=== PATIENT | female | born 1940 | race Caucasian/White ===

== ENCOUNTER 2016-07-29 10:09 | Inpatient (IN) | payer MEDICARE, OTHER ==
[~2016-07-29] VITALS: Ht 162.6 cm; Wt 75.4 kg
[~2016-07-29 10:09] MED LIST: ALBUTEROL0.83 MG/ML IH; ARCAPTA NEOHAL75 MCG IH; ASPIR-LOW81 MG PO; ASPIR-LOX325 MG PO; ASPIRIN E.C. 8181 MG PO; BENICAR 20MG TA20 MG PO; BUPROBAN150 MG PO; CIPRO500 MG PO; CLARITIN 1010 MG/TAB PO; CLEOCIN HC150 MG/CAP PO; CLEOCIN HCL300 MG PO; CLOPIDOGREL PO; COUMADIN 22.5 MG/TAB PO; COUMADIN 3MG3 MG/TAB PO; COUMADIN4 MG PO; FLAGYL500 MG PO; FLONASE NASAL S16 GM NS; IPRATROPIUM BROM3 M1 IH; LEVAQUIN 750MG750 M1 PO; LIPITOR 10MG10 MG PO; LOVENOX 100100 MG/ML SQ; MIRALAX PA17 GM/Dose PO; NORCO 325 MG-51 TAB PO; NORVASC 10MG10 MG PO; NORVASC 5MG5 MG/TAB PO; PLAVIX 75MG TAB75 MG PO; PREDNISONE10 MG PO; PREDNISONE20 MG PO; PROAIR HFA0.09 MG/AC IH; PROVENTIL0.09 MG/A1 IH; RT ADVAIR HFA 1112 G IH; RT SPIRIVA18 MCG; SENOKOT S 50 MG1 TAB PO; SEPTRA DS 8001 TAB PO; SIMVASTATIN40 MG PO; TENORMIN 5050 MG/TAB PO; TENORMIN50 MG PO; TUSS; TYLENOL 325MG325 MG PO; WELLBUTRIN PO; WELLBUTRIN SR150 M1 PO; ZOCOR 40MG40 MG PO; ZOFRAN 4MG T4 MG/TAB PO
[2016-07-29] MEDS ORDERED: MULTI VITAMINS1 TAB PO (10:41)
[2016-07-29] MEDS ORDERED: B-121000 MCG PO (10:41)
[2016-07-29] MEDS ORDERED: FERROUS SULFATE65 MG PO (10:42)
[2016-07-29 11:37] LABS: BASO # 0.1 (0.0-0.2); BASO % 0.4 % (0.0-2.0); EOS % 0.2 % (0-4.0); GRAN # 12.8 (1.4-6.5); GRAN % 84.6 % (42.2-75.2); LYMPH # 0.8 (1.2-3.4); LYMPH % 5.3 % (20.0-51.0); MEAN CELL VOLUME 89 fl (80.0-100.0); MEAN CORPUSCULAR HGB CONC 32 g/dl (33.0-37.0); MEAN PLATELET VOLUME 9.9 fl (7.4-10.4); MONO # 1.3 (0.1-0.6); MONO % 8.3 % (1.7-9.3); PLATELET COUNT 325 K/mm3 (130-400); RED BLOOD COUNT 3.79 M/mm3 (4.10-5.30); REDCELL DISTRIBUTION WIDTH-CV 15.1 % (11.5-14.5); WHITE BLOOD COUNT 15.1 K/mm3 (4.8-10.8)
[2016-07-29 11:39] LABS: HEMATOCRIT 33.7 % (37.0-47.0); HEMOGLOBIN 10.8 g/dl (12.5-16.0); MEAN CORPUSCULAR HEMOGLOBIN 28 pg (27.0-31.0)
[2016-07-29 11:43] LABS: ADJUSTED CALCIUM 9.5 mg/dL (8.4-10.2); ALBUMIN 3.5 gm/dL (3.5-5.0); BILIRUBIN,TOTAL 1.1 mg/dL (0.0-1.0); CALCIUM 9.1 mg/dL (8.4-10.2); CREATININE, serum 0.94 mg/dL (0.52-1.25); PARTIAL THROMBOPLASTIN TIME 52.4 SECONDS (26.0-37.0); TOTAL PROTEIN 7.2 gm/dL (6.4-8.2)
[2016-07-29 11:50] LABS: INR 6.1 (0.8-3.0)
[2016-07-29] MEDS ORDERED: WELLBUTRIN SR150 M1 PO (12:59)
[2016-07-29 14:48] VITALS: BP 136/57; PULSE 103; TEMP 98.3
[2016-07-29 19:46] VITALS: BP 133/64; PULSE 102; TEMP 97.7
[2016-07-29 21:32] LABS: PH 5 (5-8); SQUAMOUS EPITHELIAL 0-2 /hpf; URINE APPEARANCE Clear; URINE BACTERIA None Seen /hpf; URINE BILIRUBIN Negative (NEGATIVE); URINE BLOOD 2+ (NEGATIVE); URINE COLOR Yellow; URINE GLUCOSE Negative (NEGATIVE); URINE KETONE Negative (NEGATIVE); URINE RBC 0-2 /hpf; URINE UROBILINOGEN Negative (NEGATIVE)
[2016-07-29 23:57] VITALS: BP 135/57; PULSE 100; TEMP 98.4
[2016-07-30 03:56] VITALS: BP 149/63; PULSE 109; TEMP 98.1
[2016-07-30 07:33] LABS: BASO % 0.4 % (0.0-2.0); EOS # 0.1 (0.0-0.7); EOS % 1.1 % (0-4.0); GRAN # 8.4 (1.4-6.5); GRAN % 81.5 % (42.2-75.2); INR 1.4 (0.8-3.0); LYMPH # 0.8 (1.2-3.4); LYMPH % 8.1 % (20.0-51.0); MEAN CELL VOLUME 92 fl (80.0-100.0); MEAN CORPUSCULAR HGB CONC 31 g/dl (33.0-37.0); MEAN PLATELET VOLUME 10.1 fl (7.4-10.4); MONO # 0.8 (0.1-0.6); PLATELET COUNT 283 K/mm3 (130-400); PROTHROMBIN TIME 15.3 SECONDS (9.7-12.8); RED BLOOD COUNT 3.23 M/mm3 (4.10-5.30); REDCELL DISTRIBUTION WIDTH-CV 15.2 % (11.5-14.5); WHITE BLOOD COUNT 10.3 K/mm3 (4.8-10.8)
[2016-07-30 07:40] LABS: HEMATOCRIT 29.7 % (37.0-47.0); HEMOGLOBIN 9.1 g/dl (12.5-16.0); MEAN CORPUSCULAR HEMOGLOBIN 28 pg (27.0-31.0)
[2016-07-30 07:47] LABS: ADJUSTED CALCIUM 9.3 mg/dL (8.4-10.2); ALBUMIN 2.8 gm/dL (3.5-5.0); BILIRUBIN,TOTAL 0.8 mg/dL (0.0-1.0); CALCIUM 8.3 mg/dL (8.4-10.2); CREATININE, serum 0.7 mg/dL (0.52-1.25); POTASSIUM 3.5 mmol/L (3.4-5.0); TOTAL PROTEIN 6.2 gm/dL (6.4-8.2)
[2016-07-30 08:03] VITALS: BP 148/83; PULSE 101; TEMP 97.8
[2016-07-30 12:08] VITALS: BP 122/88; PULSE 97; TEMP 98.4
[2016-07-30 15:25] VITALS: BP 140/72; PULSE 101; TEMP 97.9
[2016-07-30 20:33] VITALS: BP 160/68; PULSE 111; TEMP 98.3
[2016-07-31 00:04] VITALS: BP 142/59; PULSE 104; TEMP 99.3
[2016-07-31 04:27] VITALS: BP 139/54; PULSE 98; TEMP 98.5
[2016-07-31 07:14] LABS: MEAN CELL VOLUME 91 fl (80.0-100.0); MEAN CORPUSCULAR HGB CONC 31 g/dl (33.0-37.0); MEAN PLATELET VOLUME 9.7 fl (7.4-10.4); PLATELET COUNT 296 K/mm3 (130-400); RED BLOOD COUNT 3.15 M/mm3 (4.10-5.30); REDCELL DISTRIBUTION WIDTH-CV 15.2 % (11.5-14.5); WHITE BLOOD COUNT 8.6 K/mm3 (4.8-10.8)
[2016-07-31 07:27] LABS: HEMATOCRIT 28.8 % (37.0-47.0); HEMOGLOBIN 8.9 g/dl (12.5-16.0); MEAN CORPUSCULAR HEMOGLOBIN 28 pg (27.0-31.0)
[2016-07-31 08:25] VITALS: BP 153/55; PULSE 102; TEMP 97.9
[2016-07-31 11:52] VITALS: BP 153/53; PULSE 101; TEMP 98.4
[2016-07-31 16:15] VITALS: BP 129/49; PULSE 107; TEMP 98.5
[2016-07-31 19:52] VITALS: BP 150/52; PULSE 100; TEMP 98.9
[2016-08-01 01:09] VITALS: BP 146/60; PULSE 95; TEMP 98.6
[2016-08-01 04:37] VITALS: BP 139/64; PULSE 102; TEMP 98.1
[2016-08-01 08:11] LABS: INR 1.7 (0.8-3.0); PROTHROMBIN TIME 18.6 SECONDS (9.7-12.8)
[2016-08-01 09:10] VITALS: BP 124/55; PULSE 88; TEMP 98.4
[2016-08-01 11:49] VITALS: BP 153/78; PULSE 110; TEMP 98.4
[2016-08-01 17:23] VITALS: BP 133/54; PULSE 100; TEMP 98
[2016-08-01 20:20] VITALS: BP 156/61; PULSE 106; TEMP 98.1
[2016-08-02 00:18] VITALS: BP 138/55; PULSE 90; TEMP 98.4
[2016-08-02 04:08] VITALS: BP 140/57; PULSE 92; TEMP 98.5
[2016-08-02 08:27] VITALS: BP 133/52; PULSE 97; TEMP 97.7
[2016-08-02] MEDS ORDERED: IPRATROPIUM BROM3 M1 IH (12:18)
[2016-08-02] MEDS ORDERED: INVANZ INJ1 G/VIAL IV (12:18)
[2016-08-02 12:22] VITALS: BP 117/55; PULSE 92; TEMP 98.3
== END 2016-08-02 14:58 | disposition home or self-care (01) | DRG 194 ==
LOC: COL.ER 10:09 → MEDICAL 12:24
PROVIDERS: Emergency Medicine; Family Medicine
DX: J18.0 Bronchopneumonia, unspecified organism (principal); K92.1 Melena; I10 Essential (primary) hypertension; J44.9 Chronic obstructive pulmonary disease, unspecified; Z86.73 Personal history of transient ischemic attack (TIA), and cerebral infarction without residual deficits; Z79.01 Long term (current) use of anticoagulants; Z86.711 Personal history of pulmonary embolism; Z87.891 Personal history of nicotine dependence; T45.515A Adverse effect of anticoagulants, initial encounter; Z85.118 Personal history of other malignant neoplasm of bronchus and lung
CPT/HCPCS: C9113; J0456; J0696; J1335; J1644; J3430; J7030; J7050; Q9967

== ENCOUNTER 2016-08-04 10:00 | Outpatient (RCR) | payer MEDICARE, OTHER ==
[2008-03-20 23:24] VITALS: BP 144/75
[2016-08-03 10:20] VITALS: BP 141/59; PULSE 93; TEMP 98.2
[~2016-08-04] VITALS: Ht 162.6 cm; Wt 75.0 kg
[~2016-08-04 10:00] MED LIST changes: +B-121000 MCG PO; +FERROUS SULFATE65 MG PO; +INVANZ INJ1 G/VIAL IV; +MULTI VITAMINS1 TAB PO
[2016-08-04 10:01] VITALS: BP 130/71; PULSE 102; TEMP 97.7
== END 2016-08-04 12:21 | disposition home or self-care (01) ==
LOC: EUO 10:00
DX: Z45.2 Encounter for adjustment and management of vascular access device (principal); J18.9 Pneumonia, unspecified organism
CPT/HCPCS: J1335; J1644

== ENCOUNTER 2017-01-12 19:57 | Inpatient (IN) | payer MEDICARE, OTHER ==
[~2017-01-12] VITALS: Ht 162.6 cm; Wt 76.0 kg
[2017-01-12 21:30] LABS: BASO % 0.3 % (0.0-2.0); EOS # 0.1 (0.0-0.7); EOS % 0.9 % (0-4.0); GRAN # 10.2 (1.4-6.5); GRAN % 88.9 % (42.2-75.2); HEMATOCRIT 40.5 % (37.0-47.0); HEMOGLOBIN 12.6 g/dl (12.5-16.0); LYMPH # 0.4 (1.2-3.4); LYMPH % 3.8 % (20.0-51.0); MEAN CELL VOLUME 91 fl (80.0-100.0); MEAN CORPUSCULAR HEMOGLOBIN 28 pg (27.0-31.0); MEAN CORPUSCULAR HGB CONC 31 g/dl (33.0-37.0); MEAN PLATELET VOLUME 10.6 fl (7.4-10.4); MONO # 0.7 (0.1-0.6); MONO % 5.8 % (1.7-9.3); PLATELET COUNT 197 K/mm3 (130-400); RED BLOOD COUNT 4.43 M/mm3 (4.10-5.30); REDCELL DISTRIBUTION WIDTH-CV 15.8 % (11.5-14.5); WHITE BLOOD COUNT 11.5 K/mm3 (4.8-10.8)
[2017-01-12 21:42] LABS: ADJUSTED CALCIUM 8.4 mg/dL (8.4-10.2); ALANINE AMINOTRANSFERASE 33 U/L (9-52); ALBUMIN 4.1 gm/dL (3.5-5.0); ALKALINE PHOSPHATASE 85 U/L (50-136); ANION GAP 9 mmol/L (7-16); BILIRUBIN,TOTAL 0.7 mg/dL (0.0-1.0); BLOOD UREA NITROGEN 16 mg/dL (7-17); CALCIUM 8.5 mg/dL (8.4-10.2); CARBON DIOXIDE 26 mmol/L (22-30); CHLORIDE 104 mmol/L (98-107); GLUCOSE 131 mg/dL (74-106); LIPASE 66 U/L (23-300); POTASSIUM 4.2 mmol/L (3.4-5.0); SODIUM 139 mmol/L (137-145); TOTAL PROTEIN 7.2 gm/dL (6.4-8.2)
[2017-01-12 21:53] LABS: TROPONIN-I < 0.012 ng/mL (0.000-0.034)
[2017-01-12 22:03] LABS: PH 5 (5-8); SQUAMOUS EPITHELIAL None Seen /hpf; URINE APPEARANCE Clear; URINE BACTERIA None Seen /hpf; URINE BILIRUBIN Negative (NEGATIVE); URINE BLOOD Negative (NEGATIVE); URINE COLOR Yellow; URINE GLUCOSE Negative (NEGATIVE); URINE KETONE 1+ (NEGATIVE); URINE RBC 0-2 /hpf; URINE UROBILINOGEN Negative (NEGATIVE); URINE WBC 0-2 /hpf
[2017-01-13 01:04] VITALS: BP 123/55; PULSE 103; TEMP 100.1
[2017-01-13 04:50] VITALS: BP 113/52; PULSE 89; TEMP 98.2
[2017-01-13 07:24] LABS: MEAN CELL VOLUME 92 fl (80.0-100.0); MEAN CORPUSCULAR HGB CONC 31 g/dl (33.0-37.0); MEAN PLATELET VOLUME 10.9 fl (7.4-10.4); PLATELET COUNT 172 K/mm3 (130-400); RED BLOOD COUNT 3.66 M/mm3 (4.10-5.30); REDCELL DISTRIBUTION WIDTH-CV 16.1 % (11.5-14.5); WHITE BLOOD COUNT 7.9 K/mm3 (4.8-10.8)
[2017-01-13 07:33] LABS: HEMATOCRIT 33.6 % (37.0-47.0); HEMOGLOBIN 10.4 g/dl (12.5-16.0); MEAN CORPUSCULAR HEMOGLOBIN 28 pg (27.0-31.0)
[2017-01-13 07:34] LABS: ADD PATHOLOGY DIFF REVIEW NO
[2017-01-13 07:41] LABS: CALCIUM 7.4 mg/dL (8.4-10.2); CREATININE, serum 0.9 mg/dL (0.52-1.25); POTASSIUM 4.1 mmol/L (3.4-5.0)
[2017-01-13 07:57] VITALS: BP 133/57; PULSE 90; TEMP 97.1
[2017-01-13 08:00] LABS: INR 2.1 (0.8-3.0); PROTHROMBIN TIME 24.3 SECONDS (9.7-12.8)
[2017-01-13 09:42] LABS: BAND 24 % (0-10); EOSINOPHIL 1 % (0-4); METAMYELOCYTE 1 % (0-0); NEUTROPHILS 69 % (42.0-75.2); PLATELET ESTIMATE NORMAL (NORMAL); TOTAL CELLS COUNTED 100
[2017-01-13 11:49] VITALS: BP 126/51; PULSE 92; TEMP 98.2
[2017-01-13 16:35] VITALS: BP 108/50; PULSE 91; TEMP 98.6
[2017-01-13 21:10] VITALS: BP 111/46; PULSE 93; TEMP 98.1
[2017-01-14] VITALS (7 sets, daily range): BP systolic 116–135; BP diastolic 45–68; PULSE 93–97; TEMP 98.6–99.4
[2017-01-14 07:27] LABS: BASO % 0.2 % (0.0-2.0); GRAN # 2.7 (1.4-6.5); GRAN % 66.1 % (42.2-75.2); LYMPH # 0.9 (1.2-3.4); LYMPH % 22.1 % (20.0-51.0); MEAN CELL VOLUME 93 fl (80.0-100.0); MEAN CORPUSCULAR HGB CONC 30 g/dl (33.0-37.0); MEAN PLATELET VOLUME 10.9 fl (7.4-10.4); MONO # 0.4 (0.1-0.6); MONO % 10.1 % (1.7-9.3); PLATELET COUNT 144 K/mm3 (130-400); RED BLOOD COUNT 3.46 M/mm3 (4.10-5.30); REDCELL DISTRIBUTION WIDTH-CV 16.5 % (11.5-14.5); WHITE BLOOD COUNT 4.1 K/mm3 (4.8-10.8)
[2017-01-14 07:36] LABS: HEMATOCRIT 32.2 % (37.0-47.0); HEMOGLOBIN 9.7 g/dl (12.5-16.0); MEAN CORPUSCULAR HEMOGLOBIN 28 pg (27.0-31.0)
[2017-01-14 07:42] LABS: CALCIUM 7.4 mg/dL (8.4-10.2); CREATININE, serum 0.73 mg/dL (0.52-1.25); POTASSIUM 3.5 mmol/L (3.4-5.0)
[2017-01-15 04:47] VITALS: BP 117/56; PULSE 85; TEMP 98.4
[2017-01-15 07:45] VITALS: BP 120/49; PULSE 95; TEMP 98.4
[2017-01-15 09:45] LABS: BASO % 0.5 % (0.0-2.0); EOS # 0.1 (0.0-0.7); EOS % 1.2 % (0-4.0); GRAN # 2.9 (1.4-6.5); GRAN % 67.6 % (42.2-75.2); LYMPH # 0.8 (1.2-3.4); LYMPH % 19.4 % (20.0-51.0); MEAN CELL VOLUME 91 fl (80.0-100.0); MEAN CORPUSCULAR HGB CONC 31 g/dl (33.0-37.0); MEAN PLATELET VOLUME 10.6 fl (7.4-10.4); MONO # 0.5 (0.1-0.6); MONO % 11.1 % (1.7-9.3); PLATELET COUNT 167 K/mm3 (130-400); RED BLOOD COUNT 3.61 M/mm3 (4.10-5.30); REDCELL DISTRIBUTION WIDTH-CV 16.1 % (11.5-14.5); WHITE BLOOD COUNT 4.3 K/mm3 (4.8-10.8)
[2017-01-15 09:46] LABS: HEMATOCRIT 32.7 % (37.0-47.0); HEMOGLOBIN 10.2 g/dl (12.5-16.0); MEAN CORPUSCULAR HEMOGLOBIN 28 pg (27.0-31.0)
[2017-01-15 09:54] LABS: INR 1.4 (0.8-3.0); PROTHROMBIN TIME 15.3 SECONDS (9.7-12.8)
[2017-01-15 10:13] LABS: CALCIUM 8.2 mg/dL (8.4-10.2); CREATININE, serum 0.65 mg/dL (0.52-1.25); POTASSIUM 3.2 mmol/L (3.4-5.0)
[2017-01-15 11:42] VITALS: BP 116/80; PULSE 92; TEMP 98.4
[2017-01-15] MEDS ORDERED: PEPCID 20MG TAB20 MG PO (14:17)
== END 2017-01-15 15:35 | disposition home or self-care (01) | DRG 392 ==
LOC: COL.ER 19:57 → MEDICAL 22:19 → SURG 01-14 09:40 → MEDICAL 01-15 15:35
PROVIDERS: Emergency Medicine; Family Medicine; Nurse Practitioner Family; Physician Assistant
DX: K52.9 Noninfective gastroenteritis and colitis, unspecified (principal); K92.1 Melena; E87.1 Hypo-osmolality and hyponatremia; E86.0 Dehydration; E87.6 Hypokalemia; J44.9 Chronic obstructive pulmonary disease, unspecified; D64.9 Anemia, unspecified; I10 Essential (primary) hypertension; Z85.118 Personal history of other malignant neoplasm of bronchus and lung; Z87.891 Personal history of nicotine dependence; Z86.711 Personal history of pulmonary embolism; Z79.01 Long term (current) use of anticoagulants
CPT/HCPCS: 99232-AI; 99239; J1956; J2405; J7030

== ENCOUNTER 2017-05-13 05:15 | Emergency (ER) | payer MEDICARE, OTHER ==
[2008-03-20 23:24] VITALS: BP 144/75
[~2017-05-13 05:15] MED LIST changes: +PEPCID 20MG TAB20 MG PO
[2017-05-13] MEDS ORDERED: NORVASC 10MG10 MG PO (05:41)
[2017-05-13 05:51] LABS: INR 3.3 (0.8-3.0); PROTHROMBIN TIME 39.6 SECONDS (9.7-12.8)
[2017-05-13 07:38] VITALS: BP 135/60; PULSE 83
== END 2017-05-13 07:38 | disposition home or self-care (01) ==
LOC: COL.ER 05:15
PROVIDERS: Emergency Medicine
DX: R04.0 Epistaxis (principal); T45.515A Adverse effect of anticoagulants, initial encounter; I10 Essential (primary) hypertension; J44.9 Chronic obstructive pulmonary disease, unspecified; E78.5 Hyperlipidemia, unspecified; Z85.118 Personal history of other malignant neoplasm of bronchus and lung; Z87.891 Personal history of nicotine dependence; Z86.73 Personal history of transient ischemic attack (TIA), and cerebral infarction without residual deficits; Z86.711 Personal history of pulmonary embolism; Z86.718 Personal history of other venous thrombosis and embolism; Z79.01 Long term (current) use of anticoagulants

== ENCOUNTER 2017-05-19 09:57 | Emergency (ER) | payer MEDICARE, OTHER ==
[2008-03-20 23:24] VITALS: BP 144/75
[~2017-05-19] VITALS: Ht 162.6 cm; Wt 68.2 kg
[2017-05-19 10:05] VITALS: BP 165/57; PULSE 104; TEMP 99.5
[2017-05-19 10:52] LABS: HEMATOCRIT 35.4 % (37.0-47.0); HEMOGLOBIN 10.9 g/dl (12.5-16.0); MEAN CELL VOLUME 92 fl (80.0-100.0); MEAN CORPUSCULAR HEMOGLOBIN 28 pg (27.0-31.0); MEAN CORPUSCULAR HGB CONC 31 g/dl (33.0-37.0); MEAN PLATELET VOLUME 10.6 fl (7.4-10.4); PLATELET COUNT 233 K/mm3 (130-400); RED BLOOD COUNT 3.85 M/mm3 (4.10-5.30); REDCELL DISTRIBUTION WIDTH-CV 16.1 % (11.5-14.5)
[2017-05-19 11:06] LABS: INR 1.9 (0.8-3.0); PROTHROMBIN TIME 21.9 SECONDS (9.7-12.8)
== END 2017-05-19 12:20 | disposition home or self-care (01) ==
LOC: COL.ER 09:57
PROVIDERS: Emergency Medicine
DX: R04.0 Epistaxis (principal); I10 Essential (primary) hypertension; J44.9 Chronic obstructive pulmonary disease, unspecified; E78.5 Hyperlipidemia, unspecified; C34.90 Malignant neoplasm of unspecified part of unspecified bronchus or lung; Z86.73 Personal history of transient ischemic attack (TIA), and cerebral infarction without residual deficits; Z79.01 Long term (current) use of anticoagulants

== ENCOUNTER 2017-05-26 07:17 | Emergency (ER) | payer MEDICARE, OTHER ==
[2008-03-20 23:24] VITALS: BP 144/75
[~2017-05-26] VITALS: Ht 162.6 cm; Wt 68.2 kg
[2017-05-26 07:28] VITALS: BP 111/71; PULSE 132; TEMP 97
[2017-05-26 08:06] LABS: BASO % 0.7 % (0.0-2.0); EOS # 0.2 (0.0-0.7); EOS % 2.6 % (0-4.0); GRAN % 68.6 % (42.2-75.2); LYMPH # 1.2 (1.2-3.4); LYMPH % 21.2 % (20.0-51.0); MEAN CELL VOLUME 92 fl (80.0-100.0); MEAN CORPUSCULAR HGB CONC 30 g/dl (33.0-37.0); MEAN PLATELET VOLUME 10.1 fl (7.4-10.4); MONO # 0.4 (0.1-0.6); MONO % 6.7 % (1.7-9.3); PLATELET COUNT 280 K/mm3 (130-400); RED BLOOD COUNT 3.68 M/mm3 (4.10-5.30); REDCELL DISTRIBUTION WIDTH-CV 15.6 % (11.5-14.5)
[2017-05-26 08:08] LABS: HEMATOCRIT 33.9 % (37.0-47.0); HEMOGLOBIN 10.2 g/dl (12.5-16.0); INR 1.8 (0.8-3.0); MEAN CORPUSCULAR HEMOGLOBIN 28 pg (27.0-31.0); PROTHROMBIN TIME 20.7 SECONDS (9.7-12.8)
[2017-05-26 08:14] LABS: CALCIUM 9.2 mg/dL (8.4-10.2); CREATININE, serum 1.03 mg/dL (0.52-1.25); POTASSIUM 3.7 mmol/L (3.4-5.0)
[2017-05-26 08:58] LABS: COLLECTION METHOD CLEAN CATCH
[2017-05-26 09:09] LABS: HYALINE CAST >12 /lpf; MUCOUS Present /lpf; PH 5 (5-8); SQUAMOUS EPITHELIAL 0-2 /hpf; URINE APPEARANCE Hazy; URINE BACTERIA None Seen /hpf; URINE BILIRUBIN Negative (NEGATIVE); URINE BLOOD Negative (NEGATIVE); URINE COLOR Yellow; URINE GLUCOSE Negative (NEGATIVE); URINE KETONE Negative (NEGATIVE); URINE LEUKOCYTE ESTERASE Trace (NEGATIVE); URINE NITRATE Negative (NEGATIVE); URINE PROTEIN(semi-quant) 2+ (NEGATIVE); URINE RBC 0-2 /hpf; URINE UROBILINOGEN Negative (NEGATIVE)
[2017-05-26 09:14] LABS: ALBUMIN 4.2 gm/dL (3.5-5.0); BILIRUBIN,TOTAL 0.5 mg/dL (0.0-1.0); CALCIUM 9.1 mg/dL (8.4-10.2); CREATININE, serum 1.07 mg/dL (0.52-1.25); POTASSIUM 3.6 mmol/L (3.4-5.0); TOTAL PROTEIN 7.1 gm/dL (6.4-8.2)
[2017-05-26] MEDS ORDERED: OMNICEF 300MG300 MG PO (09:16)
[2017-05-26 09:43] LABS: THYROID STIMULATING HORMONE 1.56 uIU/mL (0.465-4.680)
[2017-05-27 00:46] LABS: FOLATE (FOLIC ACID) 15.7 ng/mL (7.0-31.4)
== END 2017-05-26 09:35 | disposition home or self-care (01) ==
LOC: COL.ER 07:17
PROVIDERS: Emergency Medicine
DX: R04.0 Epistaxis (principal); Z86.711 Personal history of pulmonary embolism; Z86.718 Personal history of other venous thrombosis and embolism; Z79.01 Long term (current) use of anticoagulants

== ENCOUNTER 2017-10-19 09:36 | Emergency (ER) | payer MEDICARE, OTHER ==
[2008-03-20 23:24] VITALS: BP 144/75
[~2017-10-19] VITALS: Ht 160 cm; Wt 70.5 kg
[~2017-10-19 09:36] MED LIST changes: +CEFTIN500 MG PO; +MEDROL 4MG DOSPA4 MG PO; +OMNICEF 300MG300 MG PO
[2017-10-19 09:39] VITALS: TEMP 97.9
[2017-10-19 10:34] LABS: BASO % 0.4 % (0.0-2.0); EOS # 0.1 (0.0-0.7); EOS % 1.6 % (0-4.0); GRAN # 6.1 (1.4-6.5); GRAN % 71.5 % (42.2-75.2); HEMOGLOBIN 11.7 g/dl (12.5-16.0); LYMPH # 1.4 (1.2-3.4); MEAN CELL VOLUME 84 fl (80.0-100.0); MEAN CORPUSCULAR HEMOGLOBIN 27 pg (27.0-31.0); MEAN CORPUSCULAR HGB CONC 32 g/dl (33.0-37.0); MONO # 0.8 (0.1-0.6); MONO % 9.1 % (1.7-9.3); PLATELET COUNT 224 K/mm3 (130-400); RED BLOOD COUNT 4.38 M/mm3 (4.10-5.30); REDCELL DISTRIBUTION WIDTH-CV 18.8 % (11.5-14.5)
[2017-10-19 10:37] LABS: HEMATOCRIT 36.8 % (37.0-47.0)
[2017-10-19 10:40] LABS: INR 2.2 (0.8-3.0); PROTHROMBIN TIME 25.1 SECONDS (9.7-12.8)
[2017-10-19 11:21] LABS: ALBUMIN 3.6 gm/dL (3.5-5.0); BILIRUBIN,TOTAL 0.4 mg/dL (0.0-1.0); CALCIUM 9.6 mg/dL (8.4-10.2); CREATININE, serum 0.73 mg/dL (0.52-1.25); TOTAL PROTEIN 7.1 gm/dL (6.4-8.2)
[2017-10-19 12:19] VITALS: BP 142/59; PULSE 92
[2017-10-19] MEDS ORDERED: TESSALON P100 MG/CAP PO (12:32)
== END 2017-10-19 12:23 | disposition home or self-care (01) ==
LOC: COL.ER 09:36
PROVIDERS: Emergency Medicine
DX: R04.2 Hemoptysis (principal); I10 Essential (primary) hypertension; J44.9 Chronic obstructive pulmonary disease, unspecified; E78.5 Hyperlipidemia, unspecified; Z86.718 Personal history of other venous thrombosis and embolism; Z86.711 Personal history of pulmonary embolism; Z79.01 Long term (current) use of anticoagulants

== ENCOUNTER 2017-11-04 06:45 | Outpatient (CLI) | payer MEDICARE, OTHER ==
[2008-03-20 23:24] VITALS: BP 144/75
[2017-11-04] VITALS (15 sets, daily range): BP systolic 110–196; BP diastolic 52–96; PULSE 52–101; TEMP 98
[~2017-11-04] VITALS: Ht 160 cm; Wt 70.5 kg
[~2017-11-04 06:45] MED LIST changes: -B-121000 MCG PO; +CALCIUM 600MG+D1 TAB PO; +TESSALON P100 MG/CAP PO; +VITAMIN B-1000 MCG/T PO; +VITAMIN C500 MG PO
== END 2017-11-04 10:13 | disposition home or self-care (01) ==
LOC: COL.RAD 06:45
DX: C34.11 Malignant neoplasm of upper lobe, right bronchus or lung (principal); Z79.01 Long term (current) use of anticoagulants
CPT/HCPCS: J2250

== ENCOUNTER 2018-02-27 09:43 | Emergency (ER) | payer MEDICARE, OTHER ==
[2008-03-20 23:24] VITALS: BP 144/75
[~2018-02-27] VITALS: Ht 157.5 cm; Wt 68.2 kg
[2018-02-27 09:47] VITALS: TEMP 97.3
[2018-02-27 10:09] LABS: HEMOGLOBIN 10.3 g/dl (12.5-16.0); MEAN CELL VOLUME 93 fl (80.0-100.0); MEAN CORPUSCULAR HEMOGLOBIN 30 pg (27.0-31.0); MEAN CORPUSCULAR HGB CONC 32 g/dl (33.0-37.0); MEAN PLATELET VOLUME 9.6 fl (7.4-10.4); PLATELET COUNT 118 K/mm3 (130-400); RED BLOOD COUNT 3.42 M/mm3 (4.10-5.30); REDCELL DISTRIBUTION WIDTH-CV 19.2 % (11.5-14.5)
[2018-02-27 10:12] LABS: HEMATOCRIT 31.9 % (37.0-47.0)
[2018-02-27 10:23] LABS: ALBUMIN 3.5 gm/dL (3.5-5.0); BILIRUBIN,TOTAL 0.6 mg/dL (0.0-1.0); CALCIUM 8.6 mg/dL (8.4-10.2); CREATININE, serum 1.09 mg/dL (0.52-1.25); POTASSIUM 3.9 mmol/L (3.4-5.0); TOTAL PROTEIN 6.1 gm/dL (6.4-8.2)
[2018-02-27] MEDS ORDERED: DOXYCYCLINE HY100 MG PO (10:23)
[2018-02-27] MEDS ORDERED: XANAX .25M0.25 MG/TA PO (10:24)
[2018-02-27] MEDS ORDERED: ULTRAM 50MG TAB50 MG PO (10:27)
[2018-02-27] MEDS ORDERED: NORVASC 10MG10 MG PO (10:29)
[2018-02-27] MEDS ORDERED: TESSALON P100 MG/CAP PO (10:30)
[2018-02-27 10:47] LABS: BAND 16 % (0-10); LYMPHOCYTE 18 % (20.0-51.0); NEUTROPHILS 56 % (42.0-75.2); PLATELET ESTIMATE DECREASED (NORMAL)
[2018-02-27 10:49] LABS: HYPOCHROMIA 1+
[2018-02-27] MEDS ORDERED: OMNICEF 300MG300 MG PO (12:04)
[2018-02-27 13:00] VITALS: BP 132/66; PULSE 96
== END 2018-02-27 13:00 | disposition home or self-care (01) ==
LOC: COL.ER 09:43
PROVIDERS: Family Medicine
DX: T45.1X5A Adverse effect of antineoplastic and immunosuppressive drugs, initial encounter (principal); D70.9 Neutropenia, unspecified; R06.00 Dyspnea, unspecified; C34.90 Malignant neoplasm of unspecified part of unspecified bronchus or lung; Z86.718 Personal history of other venous thrombosis and embolism; Z86.711 Personal history of pulmonary embolism; Z79.01 Long term (current) use of anticoagulants
CPT/HCPCS: A4216; J0696; J7030

== ENCOUNTER 2018-08-17 15:05 | Inpatient (IN) | payer MEDICARE, OTHER ==
[~2018-08-17] VITALS: Ht 162.6 cm; Wt 70.3 kg
[~2018-08-17 15:05] MED LIST changes: +DOXYCYCLINE HY100 MG PO; +ULTRAM 50MG TAB50 MG PO; +XANAX .25M0.25 MG/TA PO
[2018-08-17 15:42] LABS: BASO % 0.4 % (0.0-2.0); EOS # 0.1 (0.0-0.7); EOS % 2.6 % (0-4.0); GRAN # 3.9 (1.4-6.5); GRAN % 72.4 % (42.2-75.2); HEMOGLOBIN 10.7 g/dl (12.5-16.0); LYMPH # 0.7 (1.2-3.4); LYMPH % 12.3 % (20.0-51.0); MEAN CELL VOLUME 91 fl (80.0-100.0); MEAN CORPUSCULAR HEMOGLOBIN 29 pg (27.0-31.0); MEAN CORPUSCULAR HGB CONC 32 g/dl (33.0-37.0); MEAN PLATELET VOLUME 9.5 fl (7.4-10.4); MONO # 0.7 (0.1-0.6); MONO % 12.1 % (1.7-9.3); PLATELET COUNT 259 K/mm3 (130-400); RED BLOOD COUNT 3.75 M/mm3 (4.10-5.30); REDCELL DISTRIBUTION WIDTH-CV 15.6 % (11.5-14.5)
[2018-08-17 15:51] LABS: INR 2.8 (0.8-3.0); PROTHROMBIN TIME 32.3 SECONDS (9.7-12.8)
[2018-08-17 15:52] LABS: ALANINE AMINOTRANSFERASE 7 U/L (9-52); ALBUMIN 3.8 gm/dL (3.5-5.0); ALKALINE PHOSPHATASE 80 U/L (50-136); ANION GAP 9 mmol/L (7-16); AST,SGOT 25 U/L (15-37); BILIRUBIN,TOTAL 0.6 mg/dL (0.0-1.0); BLOOD UREA NITROGEN 18 mg/dL (7-17); CALCIUM 8.9 mg/dL (8.4-10.2); CARBON DIOXIDE 29 mmol/L (22-30); CHLORIDE 97 mmol/L (98-107); GLUCOSE 96 mg/dL (74-106); POTASSIUM 4.5 mmol/L (3.4-5.0); SODIUM 135 mmol/L (137-145)
[2018-08-17 16:12] LABS: TROPONIN-I < 0.012 ng/mL (0.000-0.035)
[2018-08-17] MEDS ORDERED: COUMADIN 5MG5 MG/TAB PO (16:14)
[2018-08-17] MEDS ORDERED: COUMADIN 22.5 MG/TAB PO ×2 (16:16)
[2018-08-17] MEDS ORDERED: VENTOLIN0.09 MG IH (16:17)
[2018-08-17] MEDS ORDERED: 00186-0370-20 IH (16:17)
[2018-08-17] MEDS ORDERED: ZOFRAN8 MG PO (16:18)
[2018-08-17 17:31] VITALS: BP 133/51; PULSE 110; TEMP 98.2
--- NOTE | 2018-08-17 18:58 | NUR ---
REPORT TO STEPHANIE FITZGERALD.
--- NOTE | 2018-08-17 19:30 | NUR ---
REPORT RECEIVED. 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 ASSESSMENT COMPLETE. VS STABLE. PLAN OF CARE DISCUSSED FOR MATERIAL DAMAGE ADJUSTER. IS IN [employer] SHARING PHOTOS OF [employer]. REFUSING [place] DOSE-STATES SHE CANT TAKE IT BECAUSE IT MAKES HER FEEL SICK. DENIES PAIN. NO C/O AT THIS TIME. OXYGEN AT 2L/NC. MINIMAL SIGNS OF SHORTNESS OF BREATHE. DENIES SHORTNESS OF BREATHE WELL. ENCOURAGED TO CALL FOR QUESTIONS OR CONCERNS. VERBALIZES UNDERSTANDING. BED IN LOW POSITION, WHEELS LOCKED, CALL LIGHT IN REACH. WILL CONTINUE TO MONITOR.
[2018-08-17 19:49] VITALS: BP 110/55; PULSE 103; TEMP 98
[2018-08-18] VITALS: BP 130/63; PULSE 67; TEMP 97.8
[2018-08-18 04:00] VITALS: BP 110/44; PULSE 104; TEMP 97.8
[2018-08-18 07:33] LABS: GRAN # 3.2 (1.4-6.5); GRAN % 88.1 % (42.2-75.2); LYMPH # 0.3 (1.2-3.4); LYMPH % 8.3 % (20.0-51.0); MEAN CELL VOLUME 91 fl (80.0-100.0); MEAN CORPUSCULAR HGB CONC 32 g/dl (33.0-37.0); MEAN PLATELET VOLUME 9.3 fl (7.4-10.4); MONO # 0.1 (0.1-0.6); PLATELET COUNT 247 K/mm3 (130-400); RED BLOOD COUNT 3.36 M/mm3 (4.10-5.30); REDCELL DISTRIBUTION WIDTH-CV 15.5 % (11.5-14.5)
[2018-08-18 07:34] LABS: HEMATOCRIT 30.6 % (37.0-47.0); HEMOGLOBIN 9.7 g/dl (12.5-16.0); MEAN CORPUSCULAR HEMOGLOBIN 29 pg (27.0-31.0)
[2018-08-18 07:39] LABS: INR 3.4 (0.8-3.0); PROTHROMBIN TIME 38.5 SECONDS (9.7-12.8)
[2018-08-18 07:43] VITALS: BP 122/62; PULSE 96; TEMP 97.2
[2018-08-18 07:47] LABS: CALCIUM 8.8 mg/dL (8.4-10.2); CREATININE, serum 0.81 (0.52-1.25); POTASSIUM 4.5 mmol/L (3.4-5.0)
--- NOTE | 2018-08-18 08:00 | NUR ---
Patient in bed resting. Alert and oriented x 3. Shift assessment complete. Independent in room. Patient denies pain at this time. On 2L of oxygen via NC. Port to left chest accessed, dressing is CDI. Port flushes without complications. Denies further needs at this time.
--- NOTE | 2018-08-18 09:01 | NUR ---
Initial visit; Patient thanked Edge Setter for looking in on her and states she is feeling much better today. Edge Setter will keep Maribell in her prayers.
--- NOTE | 2018-08-18 10:24 | NUR ---
Phone call received from monitor worker ie: heart rate above 120 many times this a.m. Celina FULTON with hospitalist notified, continue with current rate limit for notification.
--- NOTE | 2018-08-18 11:15 | NUR ---
SW attended clinical rounds to discuss discharge planning. Patient lives independently at home alone but family lives close by. Patient plans to return home when she is discharged. Patient's PCP is Dr Gutierrez and she obtains prescriptions from [facility]. Patient denies difficulty obtaining medications. Patient uses O2 at night but no other DME is used and she does not use any home health services. Patient has a DPOA and a copy is in EMR. SW does not anticipate any discharge needs.
[2018-08-18 11:52] VITALS: BP 142/54; PULSE 116; TEMP 97.1
--- NOTE | 2018-08-18 11:57 | NUR ---
Notified Rachel FULTON of HR in 130's
--- NOTE | 2018-08-18 13:39 | NUR ---
Verified fluid bolus order with Rachel RAY
--- NOTE | 2018-08-18 15:09 | NUR ---
Called and requested records from Dr. Blackwell's office.
--- NOTE | 2018-08-18 15:58 | NUR ---
Notified Infection contol, patient influenza screen is negative, respiratory virus panel negative. Unable to collect sputum culture. Per infection control patient ok to be off isolation.
[2018-08-18 16:07] VITALS: BP 109/65; PULSE 115; TEMP 97
--- NOTE | 2018-08-18 18:55 | NUR ---
Patient in bed resting. Denies pain or further needs at this time. Reported off to warehouse supervisor 3rd shift.
[2018-08-18 19:59] VITALS: BP 106/48; PULSE 106; TEMP 97.5
--- NOTE | 2018-08-18 20:21 | NUR ---
Patient resting in bed, evening medicaitons administered. INR elevated, labs reviewed this morning, progress note to continue coumadin. Assessment completed- lungs clear, some dyspnea upon exertion, on 2 L oxygen via NC, abdominal sounds active, pulses +3, denies pain. Independent in room. Alert and oriented x4. No further needs at this time.
[2018-08-19] VITALS: BP 128/52; PULSE 105; TEMP 97.2
[2018-08-19 03:54] VITALS: BP 129/51; PULSE 103; TEMP 97.4
--- NOTE | 2018-08-19 05:05 | NUR ---
Pt slept on/off last night, VSS, no reports of pain. Indepedent in room, alert and oriented x4. IV antibiotics administered. HR 90's-100's last night on telemetry.
[2018-08-19 06:28] LABS: MEAN CELL VOLUME 91 fl (80.0-100.0); MEAN CORPUSCULAR HGB CONC 32 g/dl (33.0-37.0); MEAN PLATELET VOLUME 9.4 fl (7.4-10.4); PLATELET COUNT 256 K/mm3 (130-400); RED BLOOD COUNT 3.02 M/mm3 (4.10-5.30); REDCELL DISTRIBUTION WIDTH-CV 15.5 % (11.5-14.5)
[2018-08-19 06:30] LABS: HEMATOCRIT 27.5 % (37.0-47.0); HEMOGLOBIN 8.8 g/dl (12.5-16.0); MEAN CORPUSCULAR HEMOGLOBIN 29 pg (27.0-31.0)
[2018-08-19 06:33] LABS: INR 4.9 (0.8-3.0)
[2018-08-19 06:47] LABS: CALCIUM 8.7 mg/dL (8.4-10.2); CREATININE, serum 0.87 (0.52-1.25); POTASSIUM 4.4 mmol/L (3.4-5.0)
[2018-08-19 06:47] LABS: PROTHROMBIN TIME 56.3 SECONDS (9.7-12.8)
--- NOTE | 2018-08-19 07:16 | NUR ---
REPORT GIVEN TO AMILCAR WANG.
[2018-08-19 07:43] LABS: ANISOCYTOSIS 1+; BAND 7 % (0-10); HYPOCHROMIA 1+; LYMPHOCYTE 3 % (20.0-51.0); NEUTROPHILS 87 % (42.0-75.2); PLATELET ESTIMATE NORMAL (NORMAL)
[2018-08-19 07:44] LABS: OVALOCYTES 1+
--- NOTE | 2018-08-19 07:46 | NUR ---
Report from AMILCAR Wood. Pt sitting bedside with RT tx, denies pain, alert, oriented, pleasant, in gown.
[2018-08-19 07:50] VITALS: BP 126/50; PULSE 113; TEMP 97.5
--- NOTE | 2018-08-19 10:12 | NUR ---
Pt reports dizziness, SOA with exertion, numbess in feet up to mid-calves.
[2018-08-19 12:24] VITALS: BP 134/53; PULSE 113; TEMP 98.1
--- NOTE | 2018-08-19 12:50 | NUR ---
TELE called, pt's HR elevated into 120's, pt was in BR having a BM, denies pain.
--- NOTE | 2018-08-19 14:10 | NUR ---
Flushed pt's Port after abx completed.
--- NOTE | 2018-08-19 15:10 | NUR ---
Pt placed on O2 per NC per RT
[2018-08-19 15:44] VITALS: BP 122/69; PULSE 94; TEMP 97.9
--- NOTE | 2018-08-19 19:20 | NUR ---
Report to AMILCAR Bonilla
--- NOTE | 2018-08-19 21:00 | NUR ---
RT informed nurse that patient told her she fell out of bed earlier around 2030 and picked self up and got back into bed. Nurse into see patient. Patient reports her call light on bottom rail was stuck and while trying to get it out of rail it fell onto floor. Patient then leaned over to pick call light off of floor and rolled out of bed hitting tail bone on floor. Denies hitting head or extremities. States she wouldn't have said anything but was concerned since she's on a blood thinner. Denies dizziness or pain. States just has irritation to inner buttucks/coccyx from wiping self after frequent loose stools. Barrier cream given. No bruising to coccyx/buttucks or extremities noted. Reviewed that if a patient has a fall we implement high fall risk measures and fall risk band and yellow socks applied. Patient states she doesn't want family notified and adament it really wasn't a fall and is very clear minded. Patient alert and oriented x 4. Bernarda NORMAN and charge nurse Clayton notified of above. See vitals. At 2230 patient states she will not walk out of the room with fall risk band and socks on. "Just labeling patients and I'm going to write a report up about this hospital". States will discharge herself home tonight if bedalarm is utilized. Voiced understanding and explained would call fish house worker/done. Patient refused socks and fall wrist band and removed by this nurse. converter supervisor into visit with patient.
[2018-08-19 21:04] VITALS: BP 154/65; PULSE 86; TEMP 97.8
[2018-08-20] VITALS: BP 121/85; PULSE 82; TEMP 97
--- NOTE | 2018-08-20 00:30 | NUR ---
Patient rests quietly in bed. Respirations with ease.
[2018-08-20 02:14] VITALS: BP 140/65; PULSE 78; TEMP 97.7
--- NOTE | 2018-08-20 02:30 | NUR ---
Telemetry called and reported patients heart rate dropping into 40's. See telemetry strips. Patient resting soundly with eyes closed and awakened by nurse. Patient denies complaints of. VSS. Heart rate 78 BPM while awake. Patient up to the bathroom to void. States has had a total of 4 loose brown bms tonight ranging from medium to small.
--- NOTE | 2018-08-20 02:45 | NUR ---
Bernarda NORMAN notified of patients heart rate dropping into 40's and that patient started on propanolol 40mg BID and times given yesterday. Bernarda put propanolol on hold.
--- NOTE | 2018-08-20 04:30 | NUR ---
Patient awakened for EKG due to sinus arrythmia-vance cardia per tele.
--- NOTE | 2018-08-20 05:15 | NUR ---
Patient resting in bed. Denies complaints. States propanolol really helpful for tremors-states no tremors and holds out hands. Reviewed that med on hold for now due to her heart rate dropping into 40's at rest. Patient up to the bathroom to void. Denies needs.
[2018-08-20 08:21] LABS: BASO % 0.1 % (0.0-2.0); GRAN # 8.6 (1.4-6.5); GRAN % 84.1 % (42.2-75.2); LYMPH % 9.5 % (20.0-51.0); MEAN CELL VOLUME 91 fl (80.0-100.0); MEAN CORPUSCULAR HGB CONC 31 g/dl (33.0-37.0); MEAN PLATELET VOLUME 9.2 fl (7.4-10.4); MONO # 0.6 (0.1-0.6); MONO % 5.6 % (1.7-9.3); PLATELET COUNT 301 K/mm3 (130-400); RED BLOOD COUNT 3.36 M/mm3 (4.10-5.30); REDCELL DISTRIBUTION WIDTH-CV 15.6 % (11.5-14.5)
[2018-08-20 08:21] LABS: INR 3.5 (0.8-3.0); PROTHROMBIN TIME 39.4 SECONDS (9.7-12.8)
[2018-08-20 08:26] LABS: HEMATOCRIT 30.4 % (37.0-47.0); HEMOGLOBIN 9.5 g/dl (12.5-16.0); MEAN CORPUSCULAR HEMOGLOBIN 28 pg (27.0-31.0)
[2018-08-20 08:30] VITALS: BP 146/63; PULSE 77; TEMP 98
[2018-08-20 08:34] LABS: CALCIUM 9.1 mg/dL (8.4-10.2); CREATININE, serum 0.99 (0.52-1.25)
[2018-08-20 12:55] VITALS: BP 143/55; PULSE 80; TEMP 98.1
[2018-08-20 16:00] VITALS: BP 117/68; PULSE 75; TEMP 98
--- NOTE | 2018-08-20 18:00 | NUR ---
Alert. O2 on. Ambulatory with standby assist in halls. Mild shortness of breath. Denies productive cough. RT treatments given. IV antibiotic infusing per port.
--- NOTE | 2018-08-20 19:30 | NUR ---
pt. sitting up in bed at this time. Pt. is A&OX3, assessment complete. PORT to lt. chest patent. Pt. denies pain or other needs at this time.
[2018-08-20 20:17] VITALS: BP 139/52; PULSE 79; TEMP 97.1
[2018-08-21 00:28] VITALS: BP 134/61; PULSE 82; TEMP 98
[2018-08-21 04:06] VITALS: BP 140/64; PULSE 76; TEMP 97.7
[2018-08-21 05:43] LABS: BASO % 0.2 % (0.0-2.0); GRAN # 3.9 (1.4-6.5); GRAN % 71.6 % (42.2-75.2); LYMPH % 17.5 % (20.0-51.0); MEAN CELL VOLUME 91 fl (80.0-100.0); MEAN CORPUSCULAR HGB CONC 31 g/dl (33.0-37.0); MEAN PLATELET VOLUME 9.3 fl (7.4-10.4); MONO # 0.5 (0.1-0.6); MONO % 9.6 % (1.7-9.3); PLATELET COUNT 278 K/mm3 (130-400); RED BLOOD COUNT 3.46 M/mm3 (4.10-5.30); REDCELL DISTRIBUTION WIDTH-CV 15.4 % (11.5-14.5)
[2018-08-21 05:46] LABS: INR 2.7 (0.8-3.0); PROTHROMBIN TIME 31.1 SECONDS (9.7-12.8)
[2018-08-21 05:51] LABS: CALCIUM 8.8 mg/dL (8.4-10.2); CREATININE, serum 0.91 (0.52-1.25); POTASSIUM 3.6 mmol/L (3.4-5.0)
[2018-08-21 06:00] LABS: HEMATOCRIT 31.3 % (37.0-47.0); HEMOGLOBIN 9.6 g/dl (12.5-16.0); MEAN CORPUSCULAR HEMOGLOBIN 28 pg (27.0-31.0)
[2018-08-21 08:15] VITALS: BP 153/65; PULSE 71; TEMP 97.5
[2018-08-21] MEDS ORDERED: PREDNISONE10 MG PO (11:05)
[2018-08-21] MEDS ORDERED: AMOXICILLIN 8751 TAB PO (11:06)
--- NOTE | 2018-08-21 12:15 | NUR ---
RT treatment given. Sitting up without complaint. Minimal wheezing and cough noted. Ambulated in halls with standby assist. Dr. Herron saw patient. Port deaccessed. Dismissed to home per w/c with daughter.
== END 2018-08-21 12:15 | disposition home or self-care (01) | DRG 191 ==
LOC: COL.ER 15:05 → SURG 16:07
PROVIDERS: Emergency Medicine; Hospitalist; Nurse Practitioner Family; Physician Assistant
DX: J44.1 Chronic obstructive pulmonary disease with (acute) exacerbation (principal); C34.31 Malignant neoplasm of lower lobe, right bronchus or lung; E87.1 Hypo-osmolality and hyponatremia; I10 Essential (primary) hypertension; E78.5 Hyperlipidemia, unspecified; D64.81 Anemia due to antineoplastic chemotherapy; Z86.711 Personal history of pulmonary embolism; Z79.01 Long term (current) use of anticoagulants; Z86.718 Personal history of other venous thrombosis and embolism; Z87.891 Personal history of nicotine dependence; F41.8 Other specified anxiety disorders; K44.9 Diaphragmatic hernia without obstruction or gangrene; F98.4 Stereotyped movement disorders
CPT/HCPCS: 99223-AI; 99231-AI; 99232-AI; 99233-AI; 99239; A4216; G0378; J0696; J1644; J2543; J2920; J2930; J3475; J7030; J7512

== ENCOUNTER 2018-09-02 12:20 | Emergency (ER) | payer MEDICARE, OTHER ==
[2008-03-20 23:24] VITALS: BP 144/75
[~2018-09-02] VITALS: Ht 160 cm; Wt 69.5 kg
[~2018-09-02 12:20] MED LIST changes: +00186-0370-20 IH; +AMOXICILLIN 8751 TAB PO; +COUMADIN 5MG5 MG/TAB PO; +VENTOLIN0.09 MG IH; +ZOFRAN8 MG PO
[2018-09-02 12:28] VITALS: TEMP 97.9
[2018-09-02 13:10] LABS: BASO % 0.2 % (0.0-2.0); EOS # 0.1 (0.0-0.7); EOS % 0.7 % (0-4.0); GRAN # 5.9 (1.4-6.5); GRAN % 72.4 % (42.2-75.2); HEMOGLOBIN 11.2 g/dl (12.5-16.0); LYMPH # 1.6 (1.2-3.4); LYMPH % 19.5 % (20.0-51.0); MEAN CELL VOLUME 92 fl (80.0-100.0); MEAN CORPUSCULAR HEMOGLOBIN 28 pg (27.0-31.0); MEAN CORPUSCULAR HGB CONC 31 g/dl (33.0-37.0); MEAN PLATELET VOLUME 9.6 fl (7.4-10.4); MONO # 0.5 (0.1-0.6); MONO % 6.5 % (1.7-9.3); PLATELET COUNT 227 K/mm3 (130-400); RED BLOOD COUNT 3.95 M/mm3 (4.10-5.30); REDCELL DISTRIBUTION WIDTH-CV 16.9 % (11.5-14.5)
[2018-09-02 13:18] LABS: HEMATOCRIT 36.3 % (37.0-47.0)
[2018-09-02 13:20] LABS: CALCIUM 9.2 mg/dL (8.4-10.2); POTASSIUM 3.7 mmol/L (3.4-5.0)
[2018-09-02 13:24] LABS: INR 4.4 (0.8-3.0)
[2018-09-02 13:33] LABS: PROTHROMBIN TIME 50.2 SECONDS (9.7-12.8)
[2018-09-02 14:24] VITALS: BP 159/89; PULSE 89
== END 2018-09-02 14:25 | disposition home or self-care (01) ==
LOC: COL.ER 12:20
PROVIDERS: Emergency Medicine
DX: R04.0 Epistaxis (principal)

== ENCOUNTER 2018-09-23 17:36 | Emergency (ER) | payer MEDICARE, OTHER ==
[2008-03-20 23:24] VITALS: BP 144/75
[~2018-09-23] VITALS: Ht 162.6 cm; Wt 69.5 kg
[2018-09-23 17:44] VITALS: TEMP 99.7
[2018-09-23 19:36] VITALS: BP 130/70; PULSE 98
== END 2018-09-23 19:36 | disposition home or self-care (01) ==
LOC: COL.ER 17:36
DX: R04.0 Epistaxis (principal); I48.91 Unspecified atrial fibrillation

== ENCOUNTER 2018-10-30 21:09 | Emergency (ER) | payer MEDICARE, OTHER ==
[2008-03-20 23:24] VITALS: BP 144/75
[~2018-10-30] VITALS: Ht 160 cm; Wt 70.5 kg
[2018-10-30 21:14] VITALS: TEMP 98.5
[2018-10-30 22:03] LABS: BASO % 0.4 % (0.0-2.0); EOS # 0.2 (0.0-0.7); EOS % 2.8 % (0-4.0); GRAN # 3.7 (1.4-6.5); GRAN % 67.5 % (42.2-75.2); HEMOGLOBIN 10.2 g/dl (12.5-16.0); LYMPH % 17.5 % (20.0-51.0); MEAN CELL VOLUME 88 fl (80.0-100.0); MEAN CORPUSCULAR HEMOGLOBIN 26 pg (27.0-31.0); MEAN CORPUSCULAR HGB CONC 30 g/dl (33.0-37.0); MEAN PLATELET VOLUME 9.3 fl (7.4-10.4); MONO # 0.6 (0.1-0.6); MONO % 11.6 % (1.7-9.3); PLATELET COUNT 261 K/mm3 (130-400); RED BLOOD COUNT 3.88 M/mm3 (4.10-5.30); REDCELL DISTRIBUTION WIDTH-CV 17.2 % (11.5-14.5)
[2018-10-30 22:09] LABS: INR 1.8 (0.8-3.0); PROTHROMBIN TIME 21.9 SECONDS (9.7-12.8)
[2018-10-30 22:22] LABS: ALBUMIN 3.7 gm/dL (3.5-5.0); BILIRUBIN,TOTAL 0.3 mg/dL (0.0-1.0); CALCIUM 8.9 mg/dL (8.4-10.2); CREATININE, serum 0.93 (0.52-1.25); POTASSIUM 3.5 mmol/L (3.4-5.0); TOTAL PROTEIN 6.8 gm/dL (6.4-8.2)
[2018-10-31 01:25] VITALS: BP 146/69; PULSE 96
== END 2018-10-31 01:27 | disposition short-term general hospital (02) ==
LOC: COL.ER 21:09
PROVIDERS: Emergency Medicine
DX: R04.2 Hemoptysis (principal); I10 Essential (primary) hypertension; Z86.718 Personal history of other venous thrombosis and embolism; Z86.711 Personal history of pulmonary embolism; Z85.118 Personal history of other malignant neoplasm of bronchus and lung; Z87.891 Personal history of nicotine dependence; Z79.01 Long term (current) use of anticoagulants
CPT/HCPCS: J1956; J7030; Q9967

== ENCOUNTER 2019-02-05 17:23 | Emergency (ER) | payer MEDICARE, OTHER ==
[2008-03-20 23:24] VITALS: BP 144/75
[~2019-02-05] VITALS: Ht 162.6 cm; Wt 68.2 kg
[2019-02-05 17:39] VITALS: BP 166/80; TEMP 98.3
[2019-02-05] MEDS ORDERED: FLEXERIL5 MG PO (19:10)
[2019-02-05] MEDS ORDERED: NORCO 325 MG-51 TAB PO (19:10)
[2019-02-05] MEDS ORDERED: WALKER MC (19:26)
[2019-02-05 19:29] LABS: INR 2.8 (0.8-3.0)
[2019-02-05 19:37] VITALS: PULSE 101
== END 2019-02-05 19:37 | disposition home or self-care (01) ==
LOC: COL.ER 17:23
PROVIDERS: Emergency Medicine
DX: S22.080A Wedge compression fracture of T11-T12 vertebra, initial encounter for closed fracture (principal); I10 Essential (primary) hypertension; J44.9 Chronic obstructive pulmonary disease, unspecified; E78.5 Hyperlipidemia, unspecified; G62.9 Polyneuropathy, unspecified; Z86.718 Personal history of other venous thrombosis and embolism; Z86.711 Personal history of pulmonary embolism; Z79.01 Long term (current) use of anticoagulants; Z79.51 Long term (current) use of inhaled steroids

== ENCOUNTER 2019-02-13 10:00 | Outpatient (CLI) | payer MEDICARE, OTHER ==
[2008-03-20 23:24] VITALS: BP 144/75
[2019-02-13] VITALS (8 sets, daily range): BP systolic 141–185; BP diastolic 70–101; PULSE 89–110; TEMP 98.8
[~2019-02-13] VITALS: Ht 162.7 cm; Wt 70.0 kg
[~2019-02-13 10:00] MED LIST changes: +FLEXERIL5 MG PO; +WALKER MC
[2019-02-13] MEDS ORDERED: SPIRIVA RESPIMAT4 GM IH (11:53)
[2019-02-13] MEDS ORDERED: FLEXERIL5 MG PO (11:55)
[2019-02-13] MEDS ORDERED: NORCO 325 MG-51 TAB PO (11:56)
[2019-02-13] MEDS ORDERED: COUMADIN 22.5 MG/TAB PO (11:58)
[2019-02-13] MEDS ORDERED: COUMADIN 5MG5 MG/TAB PO (11:58)
[2019-02-13 12:32] LABS: PROTHROMBIN TIME 11.7 SECONDS (9.7-12.8)
--- NOTE | 2019-02-13 14:10 | NUR ---
SEE MERGE DOCUMENTATION FOR MEDICATION ADMINISTRATION TIMES AND INTRA/POST PROCEDURE SEDATION ASSESSMENTS.
--- NOTE | 2019-02-13 15:30 | NUR ---
Pt returned to EU 14 per bed s/p vert. Pt is on 2L O2 per NC all the time at home. Pt is currently on O2 2L per NC and resting well in bed. Family at bedsided.
--- NOTE | 2019-02-13 16:00 | NUR ---
Report to Kari Jc RN who assumed care at this time.
--- NOTE | 2019-02-13 16:45 | NUR ---
pt sits on side of bed, tolerates well, no c/o pain at this time, family in room. bandaid to back clean and dry. pt declined juice or snack, states does not have to use restroom
--- NOTE | 2019-02-13 17:15 | NUR ---
reviewed discharge inst. with pt, also family called Dr Gutierrez office for new pain RX and will picking belt operator, nurse called office to check on coumadin doseage for pt, see orders, written out for pt to take home with lab on . also reviewed moderate sedation discharge and site care. port de-accessed, flushed with NS and heparin 500cc before. pt up and dressed, discharged via w/c to car at 1725
== END 2019-02-13 17:25 | disposition home or self-care (01) ==
LOC: COL.CAR 10:00
PROVIDERS: Radiology Diagnostic Radiology
DX: S22.080A Wedge compression fracture of T11-T12 vertebra, initial encounter for closed fracture (principal); D70.4 Cyclic neutropenia; Z85.118 Personal history of other malignant neoplasm of bronchus and lung; Z90.710 Acquired absence of both cervix and uterus; Z90.49 Acquired absence of other specified parts of digestive tract; Z88.0 Allergy status to penicillin; Z91.040 Latex allergy status; Z79.01 Long term (current) use of anticoagulants; Z87.891 Personal history of nicotine dependence
CPT/HCPCS: C1713; C1894; J2250; J3010; J7120

== ENCOUNTER 2019-04-30 10:18 | Emergency (ER) | payer MEDICARE, OTHER ==
[2008-03-20 23:24] VITALS: BP 144/75
[~2019-04-30] VITALS: Ht 162.6 cm; Wt 68.2 kg
[~2019-04-30 10:18] MED LIST changes: +SPIRIVA RESPIMAT4 GM IH
[2019-04-30 10:20] VITALS: TEMP 97.5
[2019-04-30] MEDS ORDERED: INCRUSE EL62.5 MCG/A IH (10:36)
[2019-04-30 11:07] LABS: BASO % 0.8 % (0.0-2.0); EOS # 0.1 (0.0-0.7); EOS % 2.6 % (0-4.0); GRAN # 3.6 (1.4-6.5); GRAN % 68.2 % (42.2-75.2); HEMATOCRIT 37.6 % (37.0-47.0); HEMOGLOBIN 11.5 g/dl (12.5-16.0); LYMPH # 0.8 (1.2-3.4); LYMPH % 15.6 % (20.0-51.0); MEAN CELL VOLUME 88 fl (80.0-100.0); MEAN CORPUSCULAR HEMOGLOBIN 27 pg (27.0-31.0); MEAN CORPUSCULAR HGB CONC 31 g/dl (33.0-37.0); MEAN PLATELET VOLUME 9.2 fl (7.4-10.4); MONO # 0.7 (0.1-0.6); MONO % 12.4 % (1.7-9.3); PLATELET COUNT 258 K/mm3 (130-400); RED BLOOD COUNT 4.28 M/mm3 (4.10-5.30); REDCELL DISTRIBUTION WIDTH-CV 17.1 % (11.5-14.5)
[2019-04-30 11:15] LABS: INR 2.7 (0.8-3.0); PROTHROMBIN TIME 32.8 SECONDS (9.7-12.8)
[2019-04-30 11:20] LABS: BILIRUBIN,TOTAL 0.3 mg/dL (0.0-1.0); CREATININE, serum 1.02 (0.52-1.25); TOTAL PROTEIN 7.2 gm/dL (6.4-8.2)
[2019-04-30 11:50] VITALS: BP 114/72; PULSE 107
== END 2019-04-30 11:50 | disposition home or self-care (01) ==
LOC: COL.ER 10:18
PROVIDERS: Physician Assistant
DX: R04.0 Epistaxis (principal); I10 Essential (primary) hypertension; J44.9 Chronic obstructive pulmonary disease, unspecified; E78.5 Hyperlipidemia, unspecified; Z86.73 Personal history of transient ischemic attack (TIA), and cerebral infarction without residual deficits; Z85.118 Personal history of other malignant neoplasm of bronchus and lung; Z87.891 Personal history of nicotine dependence; Z79.01 Long term (current) use of anticoagulants

== ENCOUNTER 2019-07-23 10:38 | Inpatient (IN) | payer MEDICARE, OTHER ==
[~2019-07-23] VITALS: Ht 160 cm; Wt 67.8 kg
[~2019-07-23 10:38] MED LIST changes: +INCRUSE EL62.5 MCG/A IH
[2019-07-23 11:23] LABS: BASO # 0.1 (0.0-0.2); BASO % 0.4 % (0.0-2.0); EOS % 0.1 % (0-4.0); GRAN # 12.1 (1.4-6.5); GRAN % 86.1 % (42.2-75.2); LYMPH # 0.7 (1.2-3.4); LYMPH % 4.7 % (20.0-51.0); MEAN CELL VOLUME 86 fl (80.0-100.0); MEAN CORPUSCULAR HGB CONC 31 g/dl (33.0-37.0); MEAN PLATELET VOLUME 10.2 fl (7.4-10.4); MONO # 1.1 (0.1-0.6); MONO % 7.5 % (1.7-9.3); PLATELET COUNT 261 K/mm3 (130-400); REDCELL DISTRIBUTION WIDTH-CV 17.8 % (11.5-14.5)
[2019-07-23 11:24] LABS: HEMATOCRIT 31.7 % (37.0-47.0); HEMOGLOBIN 9.7 g/dl (12.5-16.0); MEAN CORPUSCULAR HEMOGLOBIN 26 pg (27.0-31.0)
[2019-07-23 11:26] LABS: ALBUMIN 3.5 gm/dL (3.5-5.0); BILIRUBIN,TOTAL 0.6 mg/dL (0.0-1.0); CREATININE, serum 1.23 (0.52-1.25); POTASSIUM 4.1 mmol/L (3.4-5.0); PROTHROMBIN TIME 83.9 SECONDS (9.7-12.8)
[2019-07-23 11:27] LABS: INR 6.8 (0.8-3.0)
[2019-07-23 11:37] LABS: TROPONIN-I 0.02 ng/mL (0.000-0.035)
[2019-07-23] MEDS ORDERED: WELLBUTRIN SR150 M1 PO (13:00)
[2019-07-23] MEDS ORDERED: LEVAQUIN 5500 MG/TA1 PO (13:05)
[2019-07-23 16:48] VITALS: BP 142/59; PULSE 111; TEMP 97.8
--- NOTE | 2019-07-23 18:17 | NUR ---
Patient had an uneventful day. Droplet precautions in place. VSS 2L NC O2. No reported SOB. IV CDI, fluids infusing. Patient administered cough medication. Patient independent in room. Denies pain and discomfort. No further needs expressed from patient. Call light within reach
--- NOTE | 2019-07-23 18:40 | NUR ---
Pt report received from Sonia RN at bedside. Pt has call light at her side and is watching tv with no complaints of pain or wants/needs at this time. No s/s of distress noted. Will continue to monitor.
[2019-07-23 19:52] VITALS: BP 138/51; PULSE 114; TEMP 97.9
[2019-07-23 23:24] VITALS: BP 129/53; PULSE 58; TEMP 98.7
--- NOTE | 2019-07-24 01:49 | NUR ---
Pt has remained in bed during the shift alternating between resting with eyes closed and watching tv. Pt remains on droplet precautions. Pt is A&Ox4, compliant with care and medication regimen, and presents in positive mood. Pt remains in stable condition at this time and is currently resting in bed with eyes closed and no s/s of pain noted. Call light within reach and no s/s of distress noted. Will continue to monitor.
[2019-07-24 03:39] VITALS: BP 136/64; PULSE 118; TEMP 98.4
[2019-07-24 06:36] LABS: BASO % 0.3 % (0.0-2.0); EOS # 0.2 (0.0-0.7); EOS % 1.7 % (0-4.0); GRAN # 7.3 (1.4-6.5); GRAN % 82.3 % (42.2-75.2); LYMPH # 0.7 (1.2-3.4); LYMPH % 7.6 % (20.0-51.0); MEAN CELL VOLUME 87 fl (80.0-100.0); MEAN CORPUSCULAR HGB CONC 30 g/dl (33.0-37.0); MONO # 0.7 (0.1-0.6); MONO % 7.5 % (1.7-9.3); PLATELET COUNT 247 K/mm3 (130-400); RED BLOOD COUNT 3.27 M/mm3 (4.10-5.30); REDCELL DISTRIBUTION WIDTH-CV 17.8 % (11.5-14.5)
[2019-07-24 06:47] LABS: CALCIUM 8.2 mg/dL (8.4-10.2); CREATININE, serum 0.88 (0.52-1.25); POTASSIUM 3.6 mmol/L (3.4-5.0)
[2019-07-24 06:49] LABS: HEMATOCRIT 28.4 % (37.0-47.0); HEMOGLOBIN 8.5 g/dl (12.5-16.0); MEAN CORPUSCULAR HEMOGLOBIN 26 pg (27.0-31.0)
[2019-07-24 06:56] LABS: INR 1.8 (0.8-3.0); PROTHROMBIN TIME 21.6 SECONDS (9.7-12.8)
--- NOTE | 2019-07-24 07:25 | NUR ---
PT REPORT GIVEN TO ÓSCAR FITZGERALD AT BEDSIDE. PT IS RESTING PEACEFULLY WITH EYES CLOSED IN BED.
--- NOTE | 2019-07-24 09:44 | NUR ---
Verified with oncology office that patient has been recieving DURVALUMAB (Imfinzi) every two weeks at office with last dose given 07/18/2019. Awaiting further information from pharmacy on required precautions.
--- NOTE | 2019-07-24 10:21 | NUR ---
Assessment complete. Pt sitting up in the side of the bed reading. States she feels okay but her cough is driving her crazy. PRN cough medication provided. Lung sounds were clear. No complaints of pain or discomfort at this time. Zosyn still running, IV fluids to follow. Pt is aware of her POC. Droplet precautions in place. No further needs expressed at this time. Call light in reach.
--- NOTE | 2019-07-24 10:34 | NUR ---
SW met with the patient to discuss discharge plan. The patient lives alone in [place]. She states that her four grandsons also live in [facility]. She reports independence with ADLs and does not have any assistive devices. She states that she does have home oxygen from [employer]. She states that she uses 2 liters at night and uses it as needed during the day. The patient's PCP is Dr. Rosalee Gutierrez and she receives her medications at [facility]. She reports no difficulties obtaining her meds. The patient's DPOA-HC is in EMR. Her DPOA-HC is her grandson, Osorio Raygoza (ph#[phone]). The patient plans to retun home upon discharge. No additional needs at this time.
--- NOTE | 2019-07-24 18:30 | NUR ---
Pt had a very uneventful day. Fluids infused as well as zosyn. PRN cough medication provided this morning. No pain or discomfort through out the day. States she has been coughing up more yellowing mucus and that it makes her feel better when she does. No other needs. Call light in reach.
--- NOTE | 2019-07-24 18:40 | NUR ---
Pt report received from Samina RN at bedside. Pt is resting in bed at this time with no complaints of pain or discomfort and denies any wants/needs at this time. Call light within reach and beverages are available on bedside table. Will continue to monitor.
[2019-07-24 20:50] VITALS: BP 120/52; PULSE 98; TEMP 98.1
--- NOTE | 2019-07-24 23:12 | NUR ---
Pt has remained in stable condition this shift with no complaints of pain. Pt has been drinking coffee and water during this shift and continues to have IV fluids running without complication via her port a cath located on her left upper chest. Pt peacefully resting in bed watching tv. Pt reports that she continues to have a productive cough and is expelling small amounts of thick to thin yellowish / green sputum. Pt presents with no s/s of distress, is A&Ox4, and able to make wants/needs known. Will continue to monitor.
--- NOTE | 2019-07-25 00:16 | NUR ---
Pt refuses to wear SCD's stating that she does not want to have her movement restricted by the SCD air hoses. Education provided on purpose of SCD's and Pt states understanding and replies that "maybe (she) will go home tomorrow" and that it won't be needed.
[2019-07-25 00:58] VITALS: BP 119/45; PULSE 97; TEMP 98
[2019-07-25 04:13] VITALS: BP 122/55; PULSE 92; TEMP 98.6
--- NOTE | 2019-07-25 06:30 | NUR ---
Pt has had a quiet night and has remained in bed resting peacefully with eyes closed for most of the second half of the shift. Pt has been up to use restroom a few times with reports of loose stools. Pt educated on side effects of antibiotics such as loose stools and that if this continues to occur throughout the day or 3 times in 2 days to let the nurse on duty know. Pt states understanding. No s/s of distress noted. Call light is at Pt side on the bed.
--- NOTE | 2019-07-25 07:10 | NUR ---
Pt report given to Soo FITZGERALD
[2019-07-25 07:44] LABS: BASO % 0.5 % (0.0-2.0); EOS # 0.1 (0.0-0.7); EOS % 2.4 % (0-4.0); GRAN # 4.1 (1.4-6.5); GRAN % 71.6 % (42.2-75.2); LYMPH # 0.9 (1.2-3.4); LYMPH % 15.2 % (20.0-51.0); MEAN CELL VOLUME 89 fl (80.0-100.0); MEAN CORPUSCULAR HGB CONC 30 g/dl (33.0-37.0); MEAN PLATELET VOLUME 9.8 fl (7.4-10.4); MONO # 0.6 (0.1-0.6); MONO % 9.6 % (1.7-9.3); PLATELET COUNT 258 K/mm3 (130-400); RED BLOOD COUNT 2.96 M/mm3 (4.10-5.30); REDCELL DISTRIBUTION WIDTH-CV 17.7 % (11.5-14.5)
[2019-07-25 07:57] LABS: HEMATOCRIT 26.3 % (37.0-47.0); HEMOGLOBIN 7.9 g/dl (12.5-16.0); MEAN CORPUSCULAR HEMOGLOBIN 27 pg (27.0-31.0)
[2019-07-25 08:03] LABS: INR 2.2 (0.8-3.0); PROTHROMBIN TIME 26.5 SECONDS (9.7-12.8)
[2019-07-25 08:06] LABS: CALCIUM 8.1 mg/dL (8.4-10.2); CREATININE, serum 0.83 (0.52-1.25); POTASSIUM 3.4 mmol/L (3.4-5.0)
[2019-07-25 08:40] VITALS: BP 109/49; PULSE 92; TEMP 97.9
[2019-07-25 12:08] VITALS: BP 113/49; PULSE 93; TEMP 97.9
[2019-07-25 17:11] VITALS: BP 121/52; PULSE 101; TEMP 97.9
--- NOTE | 2019-07-25 18:25 | NUR ---
PATIENT MENTIONED SHE HAVE A TOTAL OF [address] Herron was informed that hgb dropped from 8.5 yesterday to 7.9 today. . Tele called to inform she was tachy at 120 continuosly, patient was ambulating in her room at that time. patient confirmed she is feeling better and her chest does not hurt anymore when she coughs.
[2019-07-25 19:10] LABS: HEMATOCRIT 28.2 % (37.0-47.0); HEMOGLOBIN 8.5 g/dl (12.5-16.0)
[2019-07-25 21:48] VITALS: BP 147/65; PULSE 117; TEMP 98.2
--- NOTE | 2019-07-25 22:21 | NUR ---
PT IN BED, HUMOROUS, MEDICATION TAKEN, NO PAIN OR DISCOMFORT, BED IN LOW POSITION, WATER, AT BEDSIDE, BROUGHT IN LOTION AND SHAMPOO/BODYWASH FOR HER REQUESTED. NO OTHER NEEDS AT THIS TIME.
[2019-07-26 01:27] VITALS: BP 129/48; PULSE 96; TEMP 98.5
--- NOTE | 2019-07-26 05:03 | NUR ---
pt slept most of night. denies pain or discomfort, bed in low position, uneventful shift.
[2019-07-26 05:24] VITALS: BP 144/60; PULSE 99; TEMP 98.1
[2019-07-26 06:41] LABS: BASO % 0.7 % (0.0-2.0); EOS # 0.1 (0.0-0.7); EOS % 2.1 % (0-4.0); GRAN # 4.3 (1.4-6.5); GRAN % 70.1 % (42.2-75.2); INR 3.1 (0.8-3.0); LYMPH % 15.8 % (20.0-51.0); MEAN CELL VOLUME 88 fl (80.0-100.0); MEAN CORPUSCULAR HGB CONC 29 g/dl (33.0-37.0); MEAN PLATELET VOLUME 9.4 fl (7.4-10.4); MONO # 0.6 (0.1-0.6); PLATELET COUNT 304 K/mm3 (130-400); PROTHROMBIN TIME 37.4 SECONDS (9.7-12.8); RED BLOOD COUNT 3.18 M/mm3 (4.10-5.30); REDCELL DISTRIBUTION WIDTH-CV 17.7 % (11.5-14.5)
[2019-07-26 06:46] LABS: HEMATOCRIT 28.1 % (37.0-47.0); HEMOGLOBIN 8.2 g/dl (12.5-16.0); MEAN CORPUSCULAR HEMOGLOBIN 26 pg (27.0-31.0)
[2019-07-26 08:48] VITALS: BP 115/61; PULSE 102; TEMP 97.4
--- NOTE | 2019-07-26 09:00 | NUR ---
Patient is awake and alert in her room. Oxygen is in place. Respirations are even and nonlabored. She did have a productive cough this morning and the sputum is observed to be thick and yellow/green in color. She states that is the usual for her. She did get up and take a "sponge bath" without difficulty. Call light and personal items are within reach.
[2019-07-26] MEDS ORDERED: OMNICEF 300MG300 MG PO (09:11)
[2019-07-26] MEDS ORDERED: MEDROL 4MG DOSPA4 MG PO (09:13)
--- NOTE | 2019-07-26 09:20 | NUR ---
The patient is to discharge back home today, 07/25. SW presented and explained the IM form to the patient. The patient verbalized understanding and signed. SW to place a copy in the patient's discharge packet. No additional needs at this time.
[2019-07-26 11:55] VITALS: BP 132/73; PULSE 109; TEMP 97.7
[2019-07-26 15:41] LABS: HEMATOCRIT 27.4 % (37.0-47.0); HEMOGLOBIN 8.1 g/dl (12.5-16.0)
--- NOTE | 2019-07-26 18:07 | NUR ---
Patient is sitting up on side of bed eating supper, has no further needs at this time. Call light and personal items are within reach.
--- NOTE | 2019-07-26 19:29 | NUR ---
Received report from AMILCAR Morse.
--- NOTE | 2019-07-26 21:15 | NUR ---
Assessment complete. Alert and oriented x4. Ambulatory,independent. Denies any pain or discomfort at this time. Meds administered. Denies SOB, on 3LO2NC. Tele monitor in place, leads checked. Portacath to left upper chest intact, flushed, dressing CDI. On droplet precautions. Needs met at this time. Call light within reach.
[2019-07-26 21:57] VITALS: BP 131/46; PULSE 89; TEMP 98.3
[2019-07-27 01:12] VITALS: BP 126/54; PULSE 97; TEMP 98
[2019-07-27 05:44] VITALS: BP 141/62; PULSE 99; TEMP 98.1
--- NOTE | 2019-07-27 05:45 | NUR ---
Pt made no complaints during this shift. Meds administered. Call light within reach.
[2019-07-27 06:24] LABS: BASO % 0.6 % (0.0-2.0); EOS # 0.2 (0.0-0.7); EOS % 3.3 % (0-4.0); GRAN # 3.6 (1.4-6.5); LYMPH # 0.8 (1.2-3.4); LYMPH % 15.7 % (20.0-51.0); MEAN CELL VOLUME 89 fl (80.0-100.0); MEAN CORPUSCULAR HGB CONC 30 g/dl (33.0-37.0); MEAN PLATELET VOLUME 9.2 fl (7.4-10.4); MONO # 0.5 (0.1-0.6); MONO % 9.2 % (1.7-9.3); PLATELET COUNT 311 K/mm3 (130-400); RED BLOOD COUNT 3.16 M/mm3 (4.10-5.30); REDCELL DISTRIBUTION WIDTH-CV 17.6 % (11.5-14.5)
[2019-07-27 06:31] LABS: HEMOGLOBIN 8.3 g/dl (12.5-16.0); MEAN CORPUSCULAR HEMOGLOBIN 26 pg (27.0-31.0)
[2019-07-27 06:35] LABS: CALCIUM 8.6 mg/dL (8.4-10.2); CREATININE, serum 0.73 (0.52-1.25); POTASSIUM 3.8 mmol/L (3.4-5.0)
[2019-07-27 06:39] LABS: INR 3.2 (0.8-3.0); PROTHROMBIN TIME 39.1 SECONDS (9.7-12.8)
--- NOTE | 2019-07-27 06:58 | NUR ---
Report given to AMILCAR Almaraz.
[2019-07-27 07:49] VITALS: BP 129/56; PULSE 91; TEMP 97.9
[2019-07-27] MEDS ORDERED: OMNICEF 300MG300 MG PO (08:56)
--- NOTE | 2019-07-27 10:33 | NUR ---
PATIENT IS ALERT AND ORIENTED. COMPLAIN OF CONSTANT COUGH. DENIES ANY PAIN AT THIS TIME. PATIENT RESTING IN BED AT THIS TIME.
--- NOTE | 2019-07-27 13:35 | NUR ---
patient oxygen saturation was 93 at room air. Patient port was deassessed. patient grandson is driving her home. patient denied any pain. Patient discharged.
== END 2019-07-27 11:25 | disposition home or self-care (01) | DRG 871 ==
LOC: COL.ER 10:38 → MEDICAL 11:31
PROVIDERS: Emergency Medicine; Physician Assistant; ADMIT Hospitalist
DX: A41.9 Sepsis, unspecified organism (principal); J18.9 Pneumonia, unspecified organism; J96.21 Acute and chronic respiratory failure with hypoxia; C34.90 Malignant neoplasm of unspecified part of unspecified bronchus or lung; J44.0 Chronic obstructive pulmonary disease with (acute) lower respiratory infection; J22 Unspecified acute lower respiratory infection; B97.29 Other coronavirus as the cause of diseases classified elsewhere; M19.90 Unspecified osteoarthritis, unspecified site; D50.9 Iron deficiency anemia, unspecified; I10 Essential (primary) hypertension; J44.9 Chronic obstructive pulmonary disease, unspecified; E78.5 Hyperlipidemia, unspecified; F32.9 Major depressive disorder, single episode, unspecified; F41.9 Anxiety disorder, unspecified; G25.0 Essential tremor; J30.9 Allergic rhinitis, unspecified; R53.81 Other malaise; Z79.01 Long term (current) use of anticoagulants; Z86.718 Personal history of other venous thrombosis and embolism; Z86.711 Personal history of pulmonary embolism; Z87.891 Personal history of nicotine dependence; Z86.73 Personal history of transient ischemic attack (TIA), and cerebral infarction without residual deficits; Z90.710 Acquired absence of both cervix and uterus; Z88.0 Allergy status to penicillin
CPT/HCPCS: 99223-AI; 99232-AI; 99239; A4216; J0696; J2543; J7030

== ENCOUNTER → 2019-11-10 | Outpatient (CLI) | payer MEDICARE, OTHER ==
[~2019-11-10] MED LIST changes: +LEVAQUIN 5500 MG/TA1 PO
== END ==
LOC: ZCOL.LAB 13:28
DX: R05 Cough (principal); Z20.828 Contact with and (suspected) exposure to other viral communicable diseases

== ENCOUNTER 2020-01-04 11:03 | Emergency (ER) | payer MEDICARE, OTHER ==
[2008-03-20 23:24] VITALS: BP 144/75
[~2020-01-04] VITALS: Ht 162.6 cm; Wt 61.4 kg
[~2020-01-04 11:03] MED LIST changes: +LIPITOR20 MG PO; +PREDNISONE 5MG5 MG PO; +TOPROL XL 25MG25 MG PO
[2020-01-04 12:50] VITALS: BP 136/68; PULSE 92; TEMP 97.4
== END 2020-01-04 12:54 | disposition home or self-care (01) ==
LOC: COL.ER 11:03
DX: R04.2 Hemoptysis (principal); I25.10 Atherosclerotic heart disease of native coronary artery without angina pectoris; J44.9 Chronic obstructive pulmonary disease, unspecified; Z87.891 Personal history of nicotine dependence; Z86.718 Personal history of other venous thrombosis and embolism; Z86.711 Personal history of pulmonary embolism; Z85.118 Personal history of other malignant neoplasm of bronchus and lung; Z79.01 Long term (current) use of anticoagulants

== ENCOUNTER 2020-01-29 06:15 | Outpatient (CLI) | payer MEDICARE, OTHER ==
[2008-03-20 23:24] VITALS: BP 144/75
[~2020-01-29] VITALS: Ht 162.6 cm; Wt 60.0 kg
[2020-01-29 07:02] VITALS: BP 138/54; PULSE 93; TEMP 98.4
[2020-01-29 07:06] LABS: CALCIUM 9.1 mg/dL (8.4-10.2); CREATININE, serum 1.3 (0.52-1.25); POTASSIUM 3.7 mmol/L (3.4-5.0)
[2020-01-29 07:08] LABS: PROTHROMBIN TIME 11.4 SECONDS (9.7-12.8)
[2020-01-29] MEDS ORDERED: ASPIRIN E.C. 8181 MG PO (07:29)
[2020-01-29] MEDS ORDERED: TESSALON P100 MG/CAP PO (07:30)
[2020-01-29] MEDS ORDERED: INCRUSE EL62.5 MCG/A IH (07:33)
--- NOTE | 2020-01-29 07:33 | NUR ---
Initial visit; Patient and her daughter thanked Pizzamaker for offering prayer along with a successful procedure and healing for Maribell this morning.
[2020-01-29] MEDS ORDERED: TOPROL XL 25MG25 MG PO (07:34)
[2020-01-29] MEDS ORDERED: OXYGEN MC (07:35)
[2020-01-29] MEDS ORDERED: ALBUTEROL0.83 MG/ML IH (07:36)
[2020-01-29] MEDS ORDERED: WELLBUTRIN SR150 M1 PO (07:36)
[2020-01-29] MEDS ORDERED: COUMADIN 5MG5 MG/TAB PO (07:39)
[2020-01-29] MEDS ORDERED: VALTREX1 GM PO (07:42)
[2020-01-29] MEDS ORDERED: ZITHROMAX 250M250 MG PO (07:48)
[2020-01-29 08:45] VITALS: BP 144/79; PULSE 87
--- NOTE | 2020-01-29 08:45 | NUR ---
TO RM 7 PER CART FROM [facility]. ALERT ORIENTED X3, TALKING TO STAFF. OCCASIONAL NONPRODUCTIVE COUGH. CONTINUES TO WEAR O2 AT 2L. SATS 97-100%. DENIES PAIN OR DISCOMFORT.
[2020-01-29 09:00] VITALS: BP 150/60; PULSE 90
--- NOTE | 2020-01-29 09:00 | NUR ---
CXR DONE RECEIVED CRANBERRY JUICE. CONTINUES TO DENY PAIN OR DISCOMFORT.
[2020-01-29 09:15] VITALS: BP 142/48; PULSE 90
--- NOTE | 2020-01-29 09:15 | NUR ---
DRANK 100% AND TOLERATED WELL. TALKED TO DR WALKER AND STATED CXR IS FINE. DR OCAMPO CALLED AND OK'D TO GO [place].
--- NOTE | 2020-01-29 09:30 | NUR ---
RECEIVED DISCHARGE INSTRUCTIONS AND VERBALIZED UNDERSTANDING. PATIENTS DAUGHTER IS ASSISTING PATIENT DRESSED.
--- NOTE | 2020-01-29 09:45 | NUR ---
DISCHARGED PER WC BY NURSING STAFF TO PRIVATE CAR IN CARE OF DAUGHTER BRUCE.
[2020-01-29 10:14] LABS: TOTAL PROTEIN,PLEURAL FLUID 3.6 gm/dL
[2020-01-29 10:23] LABS: PLEURAL FLUID RBC 4000 /mm3 (0-0); PLEURAL FLUID WBC 936 /mm3
[2020-01-29 10:26] LABS: PLEURAL FLUID APPEARANCE CLEAR; PLEURAL FLUID COLOR YELLOW
== END 2020-01-29 10:00 | disposition home or self-care (01) ==
LOC: SDCO 06:15
PROVIDERS: Internal Medicine Pulmonary Disease
DX: J90 Pleural effusion, not elsewhere classified (principal); I50.9 Heart failure, unspecified; I35.0 Nonrheumatic aortic (valve) stenosis; Z85.118 Personal history of other malignant neoplasm of bronchus and lung; Z88.0 Allergy status to penicillin; Z86.711 Personal history of pulmonary embolism; Z87.891 Personal history of nicotine dependence; J44.9 Chronic obstructive pulmonary disease, unspecified; Z79.82 Long term (current) use of aspirin; Z79.01 Long term (current) use of anticoagulants; Z90.710 Acquired absence of both cervix and uterus
CPT/HCPCS: 19804

== ENCOUNTER 2020-02-29 13:33 | Inpatient (IN) | payer MEDICARE, OTHER ==
[2020-02-29] VITALS (86 sets, daily range): BP systolic 151; BP diastolic 92; PULSE 103; TEMP 96.6; O2SAT 89–100
[~2020-02-29] VITALS: Ht 157.5 cm; Wt 60.5 kg
[~2020-02-29 13:33] MED LIST changes: +OXYGEN MC; +VALTREX1 GM PO; +ZITHROMAX 250M250 MG PO
[2020-02-29 14:11] LABS: BASO # 0.1 (0.0-0.2); BASO % 0.9 % (0.0-2.0); EOS # 0.2 (0.0-0.7); EOS % 3.3 % (0-4.0); GRAN # 4.9 (1.4-6.5); GRAN % 70.9 % (42.2-75.2); LYMPH % 14.9 % (20.0-51.0); MEAN CELL VOLUME 96 fl (80.0-100.0); MEAN CORPUSCULAR HGB CONC 30 g/dl (33.0-37.0); MEAN PLATELET VOLUME 10.8 fl (7.4-10.4); MONO # 0.7 (0.1-0.6); MONO % 9.6 % (1.7-9.3); PLATELET COUNT 239 K/mm3 (130-400); RED BLOOD COUNT 3.18 M/mm3 (4.10-5.30); REDCELL DISTRIBUTION WIDTH-CV 23.5 % (11.5-14.5)
[2020-02-29 14:22] LABS: INR 2.4 (0.8-3.0); PROTHROMBIN TIME 27.4 SECONDS (9.7-12.8)
[2020-02-29 14:26] LABS: HEMATOCRIT 30.5 % (37.0-47.0); MEAN CORPUSCULAR HEMOGLOBIN 28 pg (27.0-31.0)
[2020-02-29 14:28] LABS: ALBUMIN 3.8 gm/dL (3.5-5.0); BILIRUBIN,TOTAL 0.6 mg/dL (0.0-1.0); CALCIUM 9.2 mg/dL (8.4-10.2); CREATININE, serum 1.46 (0.52-1.25); POTASSIUM 5.3 mmol/L (3.4-5.0); TOTAL PROTEIN 6.6 gm/dL (6.4-8.2)
[2020-02-29 14:49] LABS: TROPONIN-I 1.14 ng/mL (0.000-0.035)
--- NOTE | 2020-02-29 16:38 | NUR ---
RECEIVED REPORT FROM AMILCAR MUJICA IN ER. AWAITING ARRIVAL OF PT TO ICU 1.
--- NOTE | 2020-02-29 16:56 | NUR ---
PT ARRIVES TO ICI 1 ON BIPAP AND ASSISTED OVER TO ICU BED. PT PLACED ON BEDSIDE CONTINUOUS MONITOR. DR PARDO ARRIVES FOR ASSESSMENT AND TO DISCUSS POC WITH PT. PT STATES SHE DOES WANT TO BE A FULL CODE AND IS OK WITH INTUBATION IF NECESSARY. PRDERS TO DRAW ABG, RT NOTIFIED.
--- NOTE | 2020-02-29 17:02 | NUR ---
TRANSPORTED PATIENT TO ICU 1 ON BIPAP WITHOUT INCIDENT. ENRIKE CONTINUE TO MONITOR.
--- NOTE | 2020-02-29 17:11 | NUR ---
Vancomycin Initial Dosing Pharmacy Note Ordering provider: Christofer Mccann MD Indication/duration: PNA, 5 DAYS LABS: SCr 1.46, CrCl~23, GFR 34 Recommendation: Will give a Vancomycin 1.25 gm IV x1 loading dose, then Vancomycin 1 gm IV q24h. Pharmacy will continue to monitor and check a Vancomycin trough on 03/03/20. Loading dose: 1.25 grams Maintenance dose: 1 gram every 24 hours Trough goal: 15-20 ug/mL
[2020-02-29 17:18] LABS: ARTERIAL BLD GAS TCO2 CT 22.6; ARTERIAL BLOOD GAS HCO3 21.1 meq/L (22-26); ARTERIAL BLOOD GAS PCO2 48.9 mmHg (35-45); ARTERIAL BLOOD GAS PO2 76.6 mmHg (80-100); ARTERIAL BLOOD GAS pH 7.25 (7.35-7.45)
--- NOTE | 2020-02-29 17:48 | NUR ---
DR PARDO AT BEDSIDE DISCUSSING ABG RESULTS AND INTUBATION. PT AGREES.
--- NOTE | 2020-02-29 17:51 | NUR ---
DR PARDO BACK TO BEDSIDE TO DISCUSS ABG RESULTS WITH PT AND RN. EXPLAINED TO PT THE NEED TO INTUBATE. DR OCAMPO CALLS RN TO DISCUSS VENT SENTTINGS, RT AWARE. ANESTHESIA CALLED FOR INTUBATION. PT STABLE WIHILE WAITING FOR THEIR ARRIVAL ON BIPAP.
--- NOTE | 2020-02-29 17:54 | NUR ---
DR LE AT BEDSIDE TO PERFORM BEDSIDE ECHO. PHYSCIAN STATES TO RN THAT EF IS ABOUT 5%. DR OCAMPO MADE AWARE OF THESE RESULTS AND REQUESTS PT TO BE INTUABTED AND SPEAK TO DR BRIGGS ABOUT TRASNFERRING PT TO [facility]. TRIPLE AIR VALVE TESTER MADE AWARE OF POC.
--- NOTE | 2020-02-29 17:55 | NUR ---
SPOKE WITH DR PARDO ABOUT DR OCAMPO'S REQUEST TO STOP NITRO GTT AND CHANGE TO NITRO PASTE INSTEAD IF PT CAN TOLERATE POST EXTUBATION. DR PARDO SAYS YES TO STOP NITRO GTT AT THIS TIME.
--- NOTE | 2020-02-29 18:13 | NUR ---
PT SUCCESSFULLYNTUBATED BY ANETHESIA WITH EET 7.[address] XRAY NOTIFIED FOR PROCEDURE FOR PLACEMENT. COLOR CHANGED NOTED. PT PLACED ON VENT BY RT. NOTED PT'S SBP TO BE 60 WITH MANAGER OF TRAINING AND DEVELOPMENT STILL AT BEDSIDE, PLACED LT RADIAL ART LINE SUCCESSFULLY WITH ONE ATTEMPT. PT'S BP DOES IMPROVE AFTER 15 MINUTES OF START OF INTUABTION PROCESS. SEE GTT FLOWSHEET. RESTRAINTS PLACED. FC PATENT AND DRAINING YELLOW CLEAR URINE.
--- NOTE | 2020-02-29 18:40 | NUR ---
DR OCAMPO AT BEDSIDE FOR ASSESSMENT.
[2020-02-29 19:31] LABS: ARTERIAL BLD GAS O2 SATURATION 97.6 % (92-100); ARTERIAL BLD GAS TCO2 CT 15.5; ARTERIAL BLOOD GAS BASE EXCESS -11.2 (-2-2); ARTERIAL BLOOD GAS HCO3 14.6 meq/L (22-26); ARTERIAL BLOOD GAS PCO2 31.9 mmHg (35-45); ARTERIAL BLOOD GAS PO2 109.9 mmHg (80-100); ARTERIAL BLOOD GAS pH 7.28 (7.35-7.45)
--- NOTE | 2020-02-29 19:40 | NUR ---
EMS AT BEDSIDE TO TAKE PT TO [facility]. ALL PERSONAL BELONINGS SENT WITH PT. REPORT MARINELLI MILIND LEE RN AT [facility]. KARMEN BENSON MADE AWARE OF TRANSFER AND AGREES TO IT. AMILCAR LEE GIVEN KARMEN'S NUMBER TO UPDATE UPON PT'S ARRIVAL TO THEIR FACILITY.
== END 2020-02-29 19:40 | disposition short-term general hospital (02) | DRG 208 ==
LOC: COL.ER 13:33 → ICU 14:56
PROVIDERS: Emergency Medicine; Internal Medicine Pulmonary Disease; ADMIT Internal Medicine
PROC: 0BH17EZ Insertion of Endotracheal Airway into Trachea, Via Natural or Artificial Opening (ICD-10-PCS; principal; 2020-02-29)
PROC: 5A1935Z Respiratory Ventilation, Less than 24 Consecutive Hours (ICD-10-PCS; 2020-02-29)
DX: J96.21 Acute and chronic respiratory failure with hypoxia (principal); I21.4 Non-ST elevation (NSTEMI) myocardial infarction; I50.23 Acute on chronic systolic (congestive) heart failure; I13.0 Hypertensive heart and chronic kidney disease with heart failure and stage 1 through stage 4 chronic kidney disease, or unspecified chronic kidney disease; N17.9 Acute kidney failure, unspecified; J44.1 Chronic obstructive pulmonary disease with (acute) exacerbation; I42.9 Cardiomyopathy, unspecified; J96.22 Acute and chronic respiratory failure with hypercapnia; E78.5 Hyperlipidemia, unspecified; D64.9 Anemia, unspecified; I35.0 Nonrheumatic aortic (valve) stenosis; I25.10 Atherosclerotic heart disease of native coronary artery without angina pectoris; Z20.828 Contact with and (suspected) exposure to other viral communicable diseases; E87.5 Hyperkalemia; Z90.49 Acquired absence of other specified parts of digestive tract; Z90.710 Acquired absence of both cervix and uterus; Z86.711 Personal history of pulmonary embolism; Z87.891 Personal history of nicotine dependence; Z85.118 Personal history of other malignant neoplasm of bronchus and lung; Z86.718 Personal history of other venous thrombosis and embolism; Z79.01 Long term (current) use of anticoagulants
CPT/HCPCS: J0456; J0610; J0692; J0696; J1940; J2930; J3370; J7050

== ENCOUNTER 2020-03-27 14:30 | Inpatient (IN) | payer MEDICARE, OTHER ==
[~2020-03-27] VITALS: Ht 162.6 cm; Wt 51.6 kg
[2020-03-27 17:00] VITALS: BP 125/46; PULSE 95; TEMP 96
[2020-03-27] MEDS ORDERED: TOPROL XL 25MG25 MG PO (17:23)
[2020-03-27] MEDS ORDERED: ZITHROMAX 250M250 MG PO ×2 (17:26→18:00)
[2020-03-27 17:27] LABS: BASO % 0.4 % (0.0-2.0); EOS # 0.1 (0.0-0.7); EOS % 1.3 % (0-4.0); GRAN % 70.8 % (42.2-75.2); LYMPH # 1.3 (1.2-3.4); LYMPH % 17.7 % (20.0-51.0); MEAN CELL VOLUME 103 fl (80.0-100.0); MEAN CORPUSCULAR HGB CONC 30 g/dl (33.0-37.0); MEAN PLATELET VOLUME 11.1 fl (7.4-10.4); MONO # 0.7 (0.1-0.6); MONO % 9.5 % (1.7-9.3); PLATELET COUNT 223 K/mm3 (130-400); RED BLOOD COUNT 2.04 M/mm3 (4.10-5.30); REDCELL DISTRIBUTION WIDTH-CV 23.9 % (11.5-14.5)
[2020-03-27 17:28] LABS: PROTHROMBIN TIME 22.1 SECONDS (9.7-12.8)
[2020-03-27 17:30] LABS: HEMOGLOBIN 6.3 g/dl (12.5-16.0); MEAN CORPUSCULAR HEMOGLOBIN 31 pg (27.0-31.0)
[2020-03-27 17:31] LABS: ALBUMIN 3.8 gm/dL (3.5-5.0); BILIRUBIN,TOTAL 0.3 mg/dL (0.0-1.0); CALCIUM 8.7 mg/dL (8.4-10.2); CREATININE, serum 1.59 (0.52-1.25); POTASSIUM 4.4 mmol/L (3.4-5.0); TOTAL PROTEIN 6.2 gm/dL (6.4-8.2)
[2020-03-27] MEDS ORDERED: COUMADIN 5MG5 MG/TAB PO ×2 (17:32→18:03)
[2020-03-27] MEDS ORDERED: LASIX 20MG TABL20 MG PO (17:34)
[2020-03-27] MEDS ORDERED: LIPITOR20 MG PO (17:37)
[2020-03-27] MEDS ORDERED: PLAVIX 75MG TAB75 MG PO (17:39)
[2020-03-27] MEDS ORDERED: WELLBUTRIN XL150 MG PO (17:41)
[2020-03-27] MEDS ORDERED: 00186-0372-20 IH (17:43)
[2020-03-27] MEDS ORDERED: INCRUSE EL62.5 MCG/A INH (17:45)
[2020-03-27] MEDS ORDERED: TESSALON P100 MG/CAP PO (17:46)
[2020-03-27] MEDS ORDERED: PROAIR HFA0.09 MG/AC IH (17:52)
[2020-03-27] MEDS ORDERED: PEPCID 20MG TAB20 MG PO (17:53)
[2020-03-27] MEDS ORDERED: KLOR-CON SPRIN10 MEQ PO (17:55)
[2020-03-27] MEDS ORDERED: OXYGEN NAS (17:56)
--- NOTE | 2020-03-27 18:29 | NUR ---
Patient A/O x4. Patient admitted to medical unit for possible GI bleed. Patient admitted to room 355 accompanied by her daughter Marisol. Patient has low level of hemoglobin level of 6.8 reported from family. Patient reported having dark stools on and off for a while. Patient is on O2 at 2L/min via NC. Non-productive cough noted with small amount of clear sputum. Head to toe assessment completed and charted. Bilateral airam sounds wheezing. SOB noted with minimal activity. Patient stated she is feeling very tired and weak. Feeling little dizzy while standing up. Patient has a port catheter on her chest area. Daughter Marisol at bedside.
[2020-03-27 19:20] VITALS: BP 116/41; PULSE 85; TEMP 98.5
[2020-03-27 19:46] LABS: COLLECTION METHOD CLEAN CATCH
[2020-03-27 19:56] LABS: PH 5 (5-8); SQUAMOUS EPITHELIAL 0-2 /hpf; URINE APPEARANCE Clear; URINE BACTERIA None Seen /hpf; URINE BILIRUBIN Negative (NEGATIVE); URINE BLOOD Negative (NEGATIVE); URINE COLOR Straw; URINE GLUCOSE Negative (NEGATIVE); URINE KETONE Negative (NEGATIVE); URINE LEUKOCYTE ESTERASE Negative (NEGATIVE); URINE NITRATE Negative (NEGATIVE); URINE PROTEIN(semi-quant) Negative (NEGATIVE); URINE RBC None Seen /hpf; URINE UROBILINOGEN Negative (NEGATIVE)
--- NOTE | 2020-03-27 22:50 | NUR ---
PT RESTING IN THE ROOM WITH DAUGHTER AT BEDSIDE. PT HGB IS CRITICALLY LOW, 1 UNIT OF BLOOD HAS BEEN ORDERED AND WILL BE ADMINISTERED THIS NIGHT. THE PATIENT HAS NO C/O PAIN OR DISCOMFORT AT THIS TIME. ASSESSEMENT COMPLETED, WILL CONTINUE TO MONITOR THIS PATIENT THROUGHOUT THE NIGHT. NO FURTHER CONCERNS AT THIS TIME. CALL LIGHT WITHIN REACH.
[2020-03-28] VITALS (18 sets, daily range): BP systolic 97–136; BP diastolic 22–96; PULSE 58–99; TEMP 97.2–99
--- NOTE | 2020-03-28 06:38 | NUR ---
PT HAD UNEVENTFUL NIGHT. WAS GIVEN 1 UNIT OF PRBCs. PT TOLERATED BLOOD TRANSFUSION WITH NO DIFFICULTIES ALTHOUGH BP REMAINED SOFT DESPITE THE TRANSFUSION. PT HAS BEEN PREPPED, AND IS DOWN AT EGD AT THIS TIME. AMILCAR GARCIA WAS GIVEN A REPORT, AND WILL GIVE REPORT TO DAY SHIFT RN. NO FURTHER CONCERNS.
[2020-03-28 07:53] LABS: HEMATOCRIT 22.4 % (37.0-47.0); HEMOGLOBIN 6.9 g/dl (12.5-16.0)
[2020-03-28 07:59] LABS: CREATININE, serum 1.28 (0.52-1.25); POTASSIUM 3.6 mmol/L (3.4-5.0)
--- NOTE | 2020-03-28 12:34 | NUR ---
Patient came back from EGD procedure around 7:30 am. VS checekd Q 15min for 1 hour and Q 30 min for1 hour. No c/o pain or discomfort. Assessment completed. Bilateral upper an lower lung sounds wheezing. Scheduled morning medications given. HG level is 6.9 today. Order received for blood transfusion. Colonoscopy is schedule for tomorrow. Informed patient for clear liquid today.
--- NOTE | 2020-03-28 14:16 | NUR ---
Industrial Maintenance Mechanic met with patient to discuss discharge planning. Patient lives alone in [place] but reports that her grandson, Travis lives in a tiny home in her back yard. Patient states Travis checks on her periodically and will also do laundry at her house. Patient sees Dr. Gutierrez for primary care and also follows with Dr. Blackwell. Patient reports her cancer is in remission. Patient obtains her medications from [facility] and advised she has people who pick them up for her. Patient has a walker at home but reports she has not had to use it much. Patient has home oxygen from [employer]. Patient has Advance Directives which designate her grandson, Osorio (ph#[phone]). Patient states her daughter, Marisol (ph#[phone]) can be updated about her condition and discharge plans, however she only wants Osorio making medical decisions for her, not Marisol. Patient states she is independent with ADLS and plans to return home upon discharge. Patient has [facility] and would like to continue with them. KEIRA contacted Josselyn at [facility] and faxed referral. Josselyn confirmed patient has PT/OT/Nursing. SW contacted patient's grandson, Osorio to review discharge plan. Osorio is in agreement with patient returning home upon discharge with continued services from [facility]. SW will continue to follow.
--- NOTE | 2020-03-28 17:43 | NUR ---
Blood transfusion started at 1500 at the rate of 60ml/hr via port cath. . Patient is alert and oriented. Stayed in the room for the first 15 min to closely monitor VS and any allergic reaction for blood transfusion. No any allergic reaction or adverse reaction to blood transfusion noted. VS checked Q 15min for the first hour, Q 30 for the second hour, and then hourly afterwards. Patient is tolerating blood transfusion well. Will give report to night nurse RN.
[2020-03-28 19:59] LABS: HEMATOCRIT 30.8 % (37.0-47.0); HEMOGLOBIN 9.6 g/dl (12.5-16.0)
--- NOTE | 2020-03-28 20:00 | NUR ---
PATIENT IS A&O. VSS WITH TELE INPLACE. PATIENT TRYING TO DRINK BOWL PREP. NPO AT MIDNIGHT FOR COLONOSCOPY TOMORROW. BOWL PREP HALF GONE, STOOLS ARE STILL SOFT FORMED PER PATIENT. LEFT PORT ACCESSED. PATIENT HAS HX OF LUNG CA. 02 @ 2L PER NC, WHICH IS CHRONIC FOR HER. A&P LUNG PACHECO NOTED EXP WHEEZES. PATIENT IS THIN, SMALL STATURE AND PALE. PATIENT RECEIVED 1 UNIT OF PRBC TODAY. HGB NOW 9.6. HEAD TO TOE ASSESSMENT COMPLETE. EVENING MED GIVEN. COMMODE AT BEDSIDE DUE TO BOWL PREP. CALL LIGHT IN REACH. NO OTHER NEEDS.
[2020-03-29] VITALS (11 sets, daily range): BP systolic 97–147; BP diastolic 43–77; PULSE 83–100; TEMP 97.7–98.3
[2020-03-29 07:01] LABS: HEMATOCRIT 26.1 % (37.0-47.0); HEMOGLOBIN 8.2 g/dl (12.5-16.0); MEAN CELL VOLUME 95 fl (80.0-100.0); MEAN CORPUSCULAR HEMOGLOBIN 30 pg (27.0-31.0); MEAN CORPUSCULAR HGB CONC 31 g/dl (33.0-37.0); MEAN PLATELET VOLUME 10.7 fl (7.4-10.4); PLATELET COUNT 167 K/mm3 (130-400); RED BLOOD COUNT 2.76 M/mm3 (4.10-5.30); REDCELL DISTRIBUTION WIDTH-CV 21.9 % (11.5-14.5)
[2020-03-29 07:04] LABS: CREATININE, serum 1.04 (0.52-1.25); POTASSIUM 3.2 mmol/L (3.4-5.0)
--- NOTE | 2020-03-29 07:50 | NUR ---
PT USED RESTROOM, DRANK ALL OF BOWEL PREP, NPO OTHER THAN BOWEL PREP SINCE MIDNIGHT, PT DENIES PAIN/DISCOMFORT, PT ON 2L OXYGEN, PT AOX4, FLUIDS FOR PROCEDURE HUNG, STEADY GAIT, NO OTHER NEEDS.
--- NOTE | 2020-03-29 07:50 | NUR ---
PT TAKEN DOWN FOR COLONOSCOPY.
--- NOTE | 2020-03-29 09:45 | NUR ---
PT BACK IN ROOM, DENIES PAIN OR DISCOMFORT, CLEAN GOWN PROVIDED PER PT REQUEST, DIET ORDER PLACED AND KITCHEN CALLED FOR TRAY. VITALS STABLE. NO OTHER NEEDS.
--- NOTE | 2020-03-29 13:31 | NUR ---
First visit from the voice over announcer. No needs right now.
--- NOTE | 2020-03-29 17:34 | NUR ---
biopsy taken in colonoscopy in morning, pt denies pain or discomfort during shift, pt independent in room, pt pleasant, aox4, no other needs.
[2020-03-29 17:39] LABS: HEMATOCRIT 29.2 % (37.0-47.0); HEMOGLOBIN 9.1 g/dl (12.5-16.0)
--- NOTE | 2020-03-30 02:43 | NUR ---
Recieved bedside report. Patient had a colonoscopy w/ biopsy earlier in the day. Patient does not report any discomfort at this time. Sats are 92 on 2 L via nasal cannula. Patient currently resting comfortably. Call light within reach.
[2020-03-30 04:10] VITALS: BP 125/50; PULSE 90; TEMP 98.5
--- NOTE | 2020-03-30 06:40 | NUR ---
bedside shift report received from Jasmine, RN and student nurse Amanda,
[2020-03-30 07:00] VITALS: BP 125/52; PULSE 94; TEMP 98.4
[2020-03-30 07:05] LABS: INR 1.3 (0.8-3.0); PROTHROMBIN TIME 14.8 SECONDS (9.7-12.8)
[2020-03-30 07:09] LABS: BASO % 0.6 % (0.0-2.0); EOS # 0.3 (0.0-0.7); EOS % 6.2 % (0-4.0); GRAN # 2.9 (1.4-6.5); GRAN % 62.2 % (42.2-75.2); LYMPH # 0.9 (1.2-3.4); LYMPH % 18.6 % (20.0-51.0); MEAN CELL VOLUME 98 fl (80.0-100.0); MEAN CORPUSCULAR HGB CONC 31 g/dl (33.0-37.0); MEAN PLATELET VOLUME 10.7 fl (7.4-10.4); MONO # 0.6 (0.1-0.6); MONO % 12.2 % (1.7-9.3); PLATELET COUNT 161 K/mm3 (130-400); RED BLOOD COUNT 2.82 M/mm3 (4.10-5.30); REDCELL DISTRIBUTION WIDTH-CV 21.2 % (11.5-14.5)
[2020-03-30 07:11] LABS: HEMATOCRIT 27.6 % (37.0-47.0); HEMOGLOBIN 8.6 g/dl (12.5-16.0); MEAN CORPUSCULAR HEMOGLOBIN 30 pg (27.0-31.0)
[2020-03-30 07:19] LABS: CALCIUM 8.1 mg/dL (8.4-10.2); CREATININE, serum 0.97 (0.52-1.25)
--- NOTE | 2020-03-30 08:45 | NUR ---
up and about in room independently, sitting up in chair at this time, full assessment completed, see interventions for further info, denies needs at this time
[2020-03-30] MEDS ORDERED: ASPIRIN 81M81 MG/TA2 PO (10:02)
--- NOTE | 2020-03-30 11:32 | NUR ---
dressed and ready for discharge, brettacath deaccessed without complications
--- NOTE | 2020-03-30 11:48 | NUR ---
discharge instructions given to patent, verbalizes understanding
[2020-03-30 12:34] VITALS: BP 121/41; PULSE 88; TEMP 97.8
--- NOTE | 2020-03-30 12:39 | NUR ---
discharged per WC
--- NOTE | 2020-04-02 13:48 | NUR ---
Patient discharged home on 03/30/2020 and social staff worker, Padmini contacted Nura at [facility] and advised of discharge. Padmini faxed [employer] the orders. Worker contacted Nura with [facility], this date, and confirmed the above information.
== END 2020-03-30 12:39 | disposition home or self-care (01) | DRG 378 ==
LOC: MEDICAL 15:15 → UNDOADMIN 15:15 → MEDICAL 03-28 06:37
PROVIDERS: Internal Medicine Gastroenterology; Physician Assistant; Student in an Organized Health Care Education/Training Program; ADMIT Hospitalist
PROC: 0DJ08ZZ Inspection of Upper Intestinal Tract, Via Natural or Artificial Opening Endoscopic (ICD-10-PCS; principal; 2020-03-28 07:00)
PROC: 0DBP8ZX Excision of Rectum, Via Natural or Artificial Opening Endoscopic, Diagnostic (ICD-10-PCS; 2020-03-29)
DX: K92.1 Melena (principal); D62 Acute posthemorrhagic anemia; K62.6 Ulcer of anus and rectum; J96.11 Chronic respiratory failure with hypoxia; J96.12 Chronic respiratory failure with hypercapnia; N17.9 Acute kidney failure, unspecified; I42.9 Cardiomyopathy, unspecified; I50.22 Chronic systolic (congestive) heart failure; I13.0 Hypertensive heart and chronic kidney disease with heart failure and stage 1 through stage 4 chronic kidney disease, or unspecified chronic kidney disease; D50.9 Iron deficiency anemia, unspecified; I25.10 Atherosclerotic heart disease of native coronary artery without angina pectoris; K59.00 Constipation, unspecified; E87.6 Hypokalemia; J44.9 Chronic obstructive pulmonary disease, unspecified; I95.9 Hypotension, unspecified; I25.2 Old myocardial infarction; E78.5 Hyperlipidemia, unspecified; N18.9 Chronic kidney disease, unspecified; M19.90 Unspecified osteoarthritis, unspecified site; E87.5 Hyperkalemia; F41.9 Anxiety disorder, unspecified; Z86.711 Personal history of pulmonary embolism; Z95.2 Presence of prosthetic heart valve; Z79.01 Long term (current) use of anticoagulants; Z86.73 Personal history of transient ischemic attack (TIA), and cerebral infarction without residual deficits; Z88.0 Allergy status to penicillin; Z99.81 Dependence on supplemental oxygen; Z87.891 Personal history of nicotine dependence
CPT/HCPCS: 99222-AI; 99232-AI; 99233-AI; C9113; J1940; J2704; J3010; J7030; P9016

== ENCOUNTER 2020-05-24 06:53 | Outpatient (CLI) | payer MEDICARE, OTHER ==
[2008-03-20 23:24] VITALS: BP 144/75
[~2020-05-24] VITALS: Ht 162.6 cm; Wt 53.6 kg
[2020-05-24] VITALS (7 sets, daily range): BP systolic 123–148; BP diastolic 46–86; PULSE 82–96; TEMP 98.3–98.6
[~2020-05-24 06:53] MED LIST changes: +00186-0372-20 IH; +ASPIRIN 81M81 MG/TA2 PO; +INCRUSE EL62.5 MCG/A INH; +KLOR-CON SPRIN10 MEQ PO; +LASIX 20MG TABL20 MG PO; +OXYGEN NAS; +WELLBUTRIN XL150 MG PO
[2020-05-24] MEDS ORDERED: ASPIRIN E.C. 8181 MG PO (07:45)
[2020-05-24] MEDS ORDERED: [UNRECOGNIZED DRUG - CODE] PO (08:02)
[2020-05-24] MEDS ORDERED: 00186-0370-20 IH (08:06)
[2020-05-24] MEDS ORDERED: INCRUSE EL62.5 MCG/A IH (08:10)
--- NOTE | 2020-05-24 09:03 | NUR ---
TO RM 7 PER CART FROM ENDOSCOPY. ALERT ORIENTED X3, TALKING WITH STAFF. REPOSTIONED FOR COMFORT. BANDAIDE APPLIED TO RIGHT BACK.
--- NOTE | 2020-05-24 09:15 | NUR ---
RECEIVED CRANBERRY JUICE AND A MUFFIN/BUTTER.
--- NOTE | 2020-05-24 09:30 | NUR ---
ATE 100% AND TOLERATED WELL. PATIENT TEXTING ON CELL PHONE.
--- NOTE | 2020-05-24 09:37 | NUR ---
RADIOLOGY HER TO TAKE CXR FOLLOWING THORACENTESIS.
--- NOTE | 2020-05-24 10:00 | NUR ---
OFFICE CALLED TO CONFIRM FOLLOW UP (August AT 1247)
--- NOTE | 2020-05-24 10:15 | NUR ---
DR ALSTON CALLED IN RADIOLOGY. NO PNEUMOTHORAX NOTED AND MAY BE DISCHARGED. DR OCAMPO CALLED FOR DISCHARGE INSTRUCTIONS.
--- NOTE | 2020-05-24 10:26 | NUR ---
RECEIVED DISCHARGE INSTRUCTIONS AND VERBALIZED UNDERSTANDING. PATIENT GETTING DRESSED AND EAGER TO GO HOME.
--- NOTE | 2020-05-24 10:35 | NUR ---
DISCHARGED PER WC BY NURSING STAFF TO PRIVATE CAR IN CARE OF KARMEN SHANKS
== END 2020-05-24 10:45 | disposition home or self-care (01) ==
LOC: SDCO 06:53
DX: J90 Pleural effusion, not elsewhere classified (principal)
CPT/HCPCS: 19804

== ENCOUNTER → 2020-06-28 | Outpatient (CLI) | payer MEDICARE, OTHER ==
[~2020-06-28] MED LIST changes: +[UNRECOGNIZED DRUG - CODE] PO
[2020-06-28 16:55] LABS: BASO # 0.1 (0.0-0.2); BASO % 0.6 % (0.0-2.0); EOS # 0.1 (0.0-0.7); EOS % 1.6 % (0-4.0); GRAN # 5.8 (1.4-6.5); GRAN % 72.7 % (42.2-75.2); HEMATOCRIT 37.4 % (37.0-47.0); HEMOGLOBIN 11.7 g/dl (12.5-16.0); LYMPH # 1.4 (1.2-3.4); MEAN CELL VOLUME 95 fl (80.0-100.0); MEAN CORPUSCULAR HEMOGLOBIN 30 pg (27.0-31.0); MEAN CORPUSCULAR HGB CONC 31 g/dl (33.0-37.0); MONO # 0.6 (0.1-0.6); PLATELET COUNT 189 K/mm3 (130-400); RED BLOOD COUNT 3.93 M/mm3 (4.10-5.30); REDCELL DISTRIBUTION WIDTH-CV 14.8 % (11.5-14.5)
[2020-06-28 17:06] LABS: ALBUMIN 4.4 gm/dL (3.5-5.0); BILIRUBIN,TOTAL 0.4 mg/dL (0.0-1.0); CALCIUM 9.5 mg/dL (8.4-10.2); CREATININE, serum 1.4 (0.52-1.25); POTASSIUM 3.9 mmol/L (3.4-5.0); TOTAL PROTEIN 7.4 gm/dL (6.4-8.2)
== END ==
LOC: COL.RAD 15:49
PROVIDERS: Nurse Practitioner Family
DX: I50.23 Acute on chronic systolic (congestive) heart failure (principal); J90 Pleural effusion, not elsewhere classified; Z95.9 Presence of cardiac and vascular implant and graft, unspecified

== ENCOUNTER 2020-09-30 11:54 | Inpatient (IN) | payer MEDICARE, OTHER ==
[~2020-09-30] VITALS: Ht 162.6 cm; Wt 62.7 kg
[2020-09-30 12:31] LABS: HEMOGLOBIN 10.9 g/dl (12.5-16.0); MEAN CELL VOLUME 92 fl (80.0-100.0); MEAN CORPUSCULAR HEMOGLOBIN 30 pg (27.0-31.0); MEAN CORPUSCULAR HGB CONC 33 g/dl (33.0-37.0); MEAN PLATELET VOLUME 10.7 fl (7.4-10.4); PLATELET COUNT 228 K/mm3 (130-400); RED BLOOD COUNT 3.62 M/mm3 (4.10-5.30); REDCELL DISTRIBUTION WIDTH-CV 13.7 % (11.5-14.5)
[2020-09-30 12:39] LABS: HEMATOCRIT 33.3 % (37.0-47.0)
[2020-09-30 12:40] LABS: ARTERIAL BLD GAS O2 SATURATION 91.6 % (92-100); ARTERIAL BLD GAS TCO2 CT 22.4; ARTERIAL BLOOD GAS BASE EXCESS -1.9 (-2-2); ARTERIAL BLOOD GAS HCO3 21.4 meq/L (22-26); ARTERIAL BLOOD GAS PCO2 32.1 mmHg (35-45); ARTERIAL BLOOD GAS PO2 61.7 mmHg (80-100); ARTERIAL BLOOD GAS pH 7.44 (7.35-7.45)
[2020-09-30 12:45] LABS: BAND 27 % (0-10); LYMPHOCYTE 3 % (20.0-51.0); NEUTROPHILS 63 % (42.0-75.2); PLATELET ESTIMATE NORMAL (NORMAL)
[2020-09-30 12:46] LABS: ALBUMIN 3.7 gm/dL (3.5-5.0); CALCIUM 8.9 mg/dL (8.4-10.2); CREATININE, serum 2.52 (0.52-1.25); POTASSIUM 3.6 mmol/L (3.4-5.0); TOTAL PROTEIN 7.4 gm/dL (6.4-8.2)
[2020-09-30 15:25] VITALS: BP 125/51; PULSE 134; TEMP 98.3
[2020-09-30] MEDS ORDERED: ENTRESTO 24 MG1 EACH PO (16:50)
[2020-09-30] MEDS ORDERED: VOLTAREN GEL 1%1 TU TP (16:51)
[2020-09-30 16:53] VITALS: BP 117/53; PULSE 120; TEMP 98.3
[2020-09-30 18:39] LABS: PARTIAL THROMBOPLASTIN TIME 24.3 SECONDS (26.0-37.0)
[2020-09-30 19:53] VITALS: BP 137/72; PULSE 123; TEMP 97.9
--- NOTE | 2020-09-30 20:00 | NUR ---
Patient transferred up from ED with COPD exacerbation and weakness. Upon initial assessment, lung bases were diminished, patient sating 90% on 8L of O2, S1 and S2 present, bowel sounds present in all quadrants, pedal and radial pulses +2 bilaterally, and patient was A&O. VSS. Patient determined to be a fall risk, fall precautions are in place. Sacral area is reddened, but is blanchable, barrier cream applied. Scratches noted on back. Respiratory Viral panel collected. Patient denies any pain, discomfort or furhter needs at this time. Ddimer result recieved from BLADIMIR in lab. Ddimer was [id number]. DONALDO Lomas notified. Call light in reach. Bedside report given to AMILCAR Thompson.
[2020-09-30 23:36] VITALS: BP 128/80; PULSE 102; TEMP 98
--- NOTE | 2020-10-01 01:21 | NUR ---
PT A/OX4, VSS, 02 8L HIGH FLOW NC, HEP GTT INFUSING AT 10ML/HR. PT DENIES PAIN, N/V/D. PT EXPRESSES NO ADDITIONAL NEEDS AT THIS TIME. CALL LIGHT WITHIN REACH.
[2020-10-01 03:54] VITALS: BP 133/52; PULSE 88; TEMP 98.4
[2020-10-01 03:59] LABS: HEMOGLOBIN 10.3 g/dl (12.5-16.0); MEAN CELL VOLUME 96 fl (80.0-100.0); MEAN CORPUSCULAR HEMOGLOBIN 31 pg (27.0-31.0); MEAN CORPUSCULAR HGB CONC 32 g/dl (33.0-37.0); MEAN PLATELET VOLUME 10.7 fl (7.4-10.4); PLATELET COUNT 232 K/mm3 (130-400); RED BLOOD COUNT 3.35 M/mm3 (4.10-5.30); REDCELL DISTRIBUTION WIDTH-CV 13.9 % (11.5-14.5)
[2020-10-01 04:13] LABS: CALCIUM 8.7 mg/dL (8.4-10.2); CREATININE, serum 1.9 (0.52-1.25); POTASSIUM 3.7 mmol/L (3.4-5.0)
--- NOTE | 2020-10-01 04:55 | NUR ---
PT HEP GTT NOT CHANGED ON REORDER. PT HEPXA 0.67, NO CHANGES REQUIRED PER PROTOCOL. HEP GTT REMAINS INFUSING AT 10ML/HR. PT EXPRESSES NO ADDITIONAL NEEDS AT THIS TIME. CALL LIGHT WITHIN REACH.
--- NOTE | 2020-10-01 05:33 | NUR ---
PT SLEPT ON AND OFF THROUGH OUT THE NIGHT. 02 HIGH FLOW NC 8L, SATURATION OVER 92 PERCENT. DENIES PAIN. DISPLAYS SOB AFTER EXERTION, TELE MONITORING CURRENTLY RUNNING NORMAL SINUS RYTHM. HEP GTT INFUSING AT 10ML/HR. NEXT HEPXA READING AT 1000. N/S INFUSING AT 75 ML/HR. PT EXPRESSES NO ADDITIONAL NEEDS AT THIS TIME. CALL LIGHT WITHIN REACH.
[2020-10-01 07:46] VITALS: BP 125/53; PULSE 93; TEMP 97.3
--- NOTE | 2020-10-01 09:30 | NUR ---
Patient back from VQ scan, sitting up in recliner after working with PT/OT. Alert and oriented x 3. Assessment complete. PAC to left chest with heparin and fluids infusing per orders. Patient denies pain at this time. Redness to coccyx, mepliex applied at this time. Denies needs at this time.
--- NOTE | 2020-10-01 10:08 | NUR ---
Initial visit; "García" shared interesting information about his Grandson and all the other young men in her family. She talked about her declining health and focused upon others. Coverage Analyst prayed with Maribell and will continue to look in on her.
--- NOTE | 2020-10-01 10:46 | NUR ---
Hep xa at 0.66. no change to rate at this time. recheck in AM
--- NOTE | 2020-10-01 11:28 | NUR ---
SW met with the patient to discuss discharge plan. The patient lives alone outside of [place]. She states that her grandson lives 3-4 blocks away from her. She reports independence with ADLs and has a walker and home oxygen from [employer]. The patient's PCP is Dr. Rosalee Gutierrez and she receives her medications from [facility]. She reports no difficulties obtaining her meds. The patient's DPOA-HC is in EMR and it designates her oldest grandson, Osorio (ph#[phone]) and her daughter, Evi. The patient reports that Osorio also lives nearby her. PT/OT recommend SNF vs home health. SW discussed their recommendation with the patient. The patient reports that she would be interested in SNF upon discharge and would prefer 1) [facility] 2) [facility]. She states that she has also been thinking about transitioning to assisted living and would be interested in AL at [facility]. SW notified and faxed a referral to Concepción at [facility]. KEIRA consulted IPR Director, Amarilys. Awaiting screens. SW contacted and updated the patient's grandson, Osorio. Osorio is supportive of SNF upon discharge and the patient's preferences. *Discharge plan: post-acute rehab*
--- NOTE | 2020-10-01 11:50 | NUR ---
Radiology in for josselyn duplex
[2020-10-01 12:53] VITALS: BP 124/59; PULSE 16; TEMP 97.5
--- NOTE | 2020-10-01 15:00 | NUR ---
Patient to CT by wheelchair. No further needs at this time.
[2020-10-01 16:01] VITALS: BP 128/53; PULSE 89; TEMP 97.7
[2020-10-01 19:20] VITALS: BP 141/60; PULSE 100; TEMP 97.7
[2020-10-01 23:26] VITALS: BP 132/61; PULSE 99; TEMP 97.5
[2020-10-02 04:08] VITALS: BP 128/60; PULSE 87; TEMP 97.3
[2020-10-02 06:37] LABS: MEAN CELL VOLUME 95 fl (80.0-100.0); MEAN CORPUSCULAR HGB CONC 32 g/dl (33.0-37.0); MEAN PLATELET VOLUME 10.6 fl (7.4-10.4); PLATELET COUNT 249 K/mm3 (130-400); RED BLOOD COUNT 3.07 M/mm3 (4.10-5.30); REDCELL DISTRIBUTION WIDTH-CV 13.9 % (11.5-14.5)
[2020-10-02 06:44] LABS: HEMATOCRIT 29.3 % (37.0-47.0); HEMOGLOBIN 9.5 g/dl (12.5-16.0); MEAN CORPUSCULAR HEMOGLOBIN 31 pg (27.0-31.0)
[2020-10-02 06:46] LABS: CALCIUM 8.7 mg/dL (8.4-10.2); CREATININE, serum 1.22 (0.52-1.25); POTASSIUM 3.3 mmol/L (3.4-5.0)
--- NOTE | 2020-10-02 07:26 | NUR ---
Patient asleep in bed at this time. O2 running at 6L via oxy mask. NS running at 60 ml/hr in Left arm. No signs of pain, discomfort, or needs at this time. Will continue to monitor. Call light in reach. Fall precautions in place.
[2020-10-02 09:12] VITALS: BP 145/93; PULSE 110; TEMP 97.6
--- NOTE | 2020-10-02 10:38 | NUR ---
Concepción, at [facility], reports that they are good to accept the patient, once her oxygen levels are stable.
[2020-10-02 12:16] VITALS: BP 119/57; PULSE 98; TEMP 97.9
--- NOTE | 2020-10-02 13:37 | NUR ---
The patient may be able to d/c tomorrow. KEIRA notified and faxed updates to Concepción at [facility]. KEIRA met with the patient to update. The patient is agreeable to the plan.
--- NOTE | 2020-10-02 15:27 | NUR ---
Scheduled medication given. Assessments preformed. Patient denies any pain, discomfort, or SOA. O2 running at 6L via oxy mask. Bottom continues to be reddened, but blanchable. Barrier cream and mepilex placed on sacrum. Patient has experienced 2 runny stools this shift, DONALDO Gaxiola contacted. Patient placed on contact precautions, order put in for CDIFF specimen. Patient denies any further needs at this time. Will continue to monitor. Call light in reach. Fall precautions in place.
[2020-10-02 16:18] VITALS: BP 137/65; PULSE 102; TEMP 97.7
--- NOTE | 2020-10-02 18:20 | NUR ---
Covid swab collected.
[2020-10-02 19:31] VITALS: BP 156/51; PULSE 105; TEMP 97.9
--- NOTE | 2020-10-02 20:00 | NUR ---
Assessment complete. Patient alert and oriented with no complaints of pain. She wears 3 liters oxygen and shows no signs of respiratory distress. Lung sounds have audible wheezes and crackles. No edema is noted. Her coccyx is redenned but blanchable; Patient is able to move independtly in bed and is advised to stay off her bottom as much as possible. Call light in reach, will continue to monitor.
[2020-10-03 00:53] VITALS: BP 137/61; PULSE 90; TEMP 98.4
[2020-10-03 04:10] VITALS: BP 118/58; PULSE 86; TEMP 97.9
[2020-10-03 06:51] LABS: MEAN CELL VOLUME 96 fl (80.0-100.0); MEAN CORPUSCULAR HGB CONC 31 g/dl (33.0-37.0); MEAN PLATELET VOLUME 10.1 fl (7.4-10.4); PLATELET COUNT 235 K/mm3 (130-400); RED BLOOD COUNT 2.93 M/mm3 (4.10-5.30); REDCELL DISTRIBUTION WIDTH-CV 14.1 % (11.5-14.5)
[2020-10-03 06:52] LABS: HEMATOCRIT 28.2 % (37.0-47.0); HEMOGLOBIN 8.8 g/dl (12.5-16.0); MEAN CORPUSCULAR HEMOGLOBIN 30 pg (27.0-31.0)
--- NOTE | 2020-10-03 07:04 | NUR ---
Patient asleep in bed at this time. O2 running at 6L via nasal cannula. No signs of pain, discomfort, or further needs at this time. Will continue to monitor. Call light in reach. Fall precautions in place.
[2020-10-03 07:14] LABS: CALCIUM 8.6 mg/dL (8.4-10.2); CREATININE, serum 1.08 (0.52-1.25); POTASSIUM 3.7 mmol/L (3.4-5.0)
[2020-10-03 07:21] VITALS: BP 156/80; PULSE 55; TEMP 97.8
[2020-10-03 09:32] VITALS: PULSE 99
[2020-10-03] MEDS ORDERED: OMNICEF 300MG300 MG PO (11:02)
[2020-10-03] MEDS ORDERED: PREDNISONE20 MG PO (11:05)
--- NOTE | 2020-10-03 11:11 | NUR ---
SW attended clinical rounds. The patient is to tentatively d/c today. The patient was tested for c.diff yesterday, due to diarrhea. The results are still pending. SW presented and read the IM form outloud to the patient. The patient verbalized understanding and gave ANNETTE approval to sign the form on her behalf. ANNETTE contacted and updated the patient's grandson/DPOA-HC, Osorio. He is agreeable to the plan. Annette notified and faxed updates to Concepción at [facility].
[2020-10-03 11:45] VITALS: BP 143/75; PULSE 95; TEMP 97.9
[2020-10-03 11:51] LABS: CLOSTRIDIUM DIFF A/B NEG; CLOSTRIDIUM DIFF A/B INTERP NonToxigenic C.diff
--- NOTE | 2020-10-03 14:37 | NUR ---
Scheduled medications given, assessments performed. Patient's sacral region is reddened, but blanchable. Scratches located on patients back. Patient denies any pain, or discomfort at this time. States that she is feeling much better than when she first came in. Patient is currenlty on 2L of 02 via nasal cannula. Will be transfering to [facility] at 1530. Will continue to monitor until then. VSS. Call light in reach. Fall precautions in place.
[2020-10-03 14:45] VITALS: BP 143/75; PULSE 95; TEMP 97.9
--- NOTE | 2020-10-03 15:02 | NUR ---
KEIRA faxed the patient's c.diff interpretation to Concepción at [facility]. Concepción reports that they are able to take the patient. The patient is to discharge today, 10/03, to [facility] for a skilled stay. Transportation was scheduled at 1530, via [facility]. KEIRA informed the patient, her RN, and the patient's grandson/DPOA (Osorio) of the time. They were all agreeable to the time. No additional needs at this time.
--- NOTE | 2020-10-03 15:43 | NUR ---
Port de-accessed. Heparin flushed through line. Catheter intact, no signs of phlebitis.
--- NOTE | 2020-10-03 15:51 | NUR ---
Patient escorted from the building by [facility] staff. IV DC'd, catheter intact, no signs of phlebitis. Patient denies any pain, discomfort, or futher needs upon discharge. VSS.
[2021-01-01] MEDS ORDERED: ZITHROMAX Z PA250 MG PO (16:32)
== END 2020-10-03 15:53 | DRG 871 ==
LOC: COL.ER 11:54 → MEDICAL 13:27
PROVIDERS: Family Medicine; Physician Assistant; Student in an Organized Health Care Education/Training Program; ADMIT Student in an Organized Health Care Education/Training Program
DX: A41.3 Sepsis due to Hemophilus influenzae (principal); J96.21 Acute and chronic respiratory failure with hypoxia; J96.22 Acute and chronic respiratory failure with hypercapnia; J18.9 Pneumonia, unspecified organism; N17.9 Acute kidney failure, unspecified; I42.9 Cardiomyopathy, unspecified; N18.9 Chronic kidney disease, unspecified; R19.7 Diarrhea, unspecified; E78.5 Hyperlipidemia, unspecified; D50.0 Iron deficiency anemia secondary to blood loss (chronic); M19.90 Unspecified osteoarthritis, unspecified site; I25.10 Atherosclerotic heart disease of native coronary artery without angina pectoris; B96.3 Hemophilus influenzae [H. influenzae] as the cause of diseases classified elsewhere; I35.0 Nonrheumatic aortic (valve) stenosis; Z20.822 Contact with and (suspected) exposure to COVID-19; F41.9 Anxiety disorder, unspecified; Z85.118 Personal history of other malignant neoplasm of bronchus and lung; Z86.73 Personal history of transient ischemic attack (TIA), and cerebral infarction without residual deficits; Z86.711 Personal history of pulmonary embolism; Z90.711 Acquired absence of uterus with remaining cervical stump; Z90.49 Acquired absence of other specified parts of digestive tract
CPT/HCPCS: 99223-AI; 99232-AI; 99233-AI; 99239; A9284; A9540; A9567; J0456; J0696; J1644; J2920; J2930; J7030; J7050; J7120; J7512

== ENCOUNTER → 2021-10-02 | Outpatient (CLI) | payer MEDICARE, OTHER ==
[~2021-10-02] MED LIST changes: +ENTRESTO 24 MG1 EACH PO; +VOLTAREN GEL 1%1 TU TP; +ZITHROMAX Z PA250 MG PO
== END ==
LOC: COL.RAD 07:04
DX: C34.90 Malignant neoplasm of unspecified part of unspecified bronchus or lung (principal); J90 Pleural effusion, not elsewhere classified; J98.11 Atelectasis; R91.8 Other nonspecific abnormal finding of lung field
CPT/HCPCS: Q9967

== ENCOUNTER 2021-10-17 07:43 | Outpatient (CLI) | payer MEDICARE, OTHER ==
[2008-03-20 23:24] VITALS: BP 144/75
[~2021-10-17] VITALS: Ht 162.6 cm; Wt 53.8 kg
--- NOTE | 2021-10-17 07:55 | NUR ---
80 Year old natural female admitted to [facility] bay #1 via wheelchair. PT is able to stand and tolerate weight and height. Allergies and HX reviewed. Medications attempted to be reviewed, however PT did not bring med list and is not reliable historian for medications. Monitors applied and vitals obtained. BP is elevated; PT denies taking any medications this AM. Procedure verified and consent signed. PT oriented to room and call bryan, within reach. PT denied needing assistance changing into clean gown. PT desires to keep on pants and personal socks, non-slip socks placed over. Warm blankets provided. PT has port but it will not be accessed for current procedure. Physcial assessment completed. PT presents with wet, productive cough, that is contineous; "I feel like there is somthing I can't cough up". 02 continues via NV at 2L to wall supply; 02 stats remain above 98% RN called office for H&P and office (primary care) for med list; fax number provided to each office.
[2021-10-17 08:27] VITALS: BP 162/51; PULSE 69; TEMP 97.6
[2021-10-17] MEDS ORDERED: ZOFRAN 4MG T4 MG/TAB PO (09:13)
[2021-10-17] MEDS ORDERED: WELLBUTRIN XL150 MG PO (09:14)
--- NOTE | 2021-10-17 09:16 | NUR ---
Med list was obtained from Dr. Gutierrez office and reviewed with the PT, who was able to recall her medications including last dose. List placed on chart.
--- NOTE | 2021-10-17 09:45 | NUR ---
PT arrived from procedure; verbal report obtained: Procedure was not done, no medications administered. PT was provided with ice water and assisted with changing into personal clothes. DC instructions reviewed with the PT, who states she has a follow up appointment scheduled. PT expressed desire to go home and eat with her grandson's. PT was then dismissed from [facility] via wheelchair to the PT entrence by Becky FITZGERALD. PT has personal belongings and DC packet in hand; and was transferred into the care of her grandson Travis who is present to drive private car.
--- NOTE | 2021-10-17 10:18 | NUR ---
Initial visit; Patient thanked Client Service Associate for offering comfort and prayer prior to her surgical procedure with Dr Doshi. Client Service Associate will keep Maribell in her prayers.
== END 2021-10-17 10:05 | disposition home or self-care (01) ==
LOC: SDCO 07:43
DX: J90 Pleural effusion, not elsewhere classified (principal); Z85.118 Personal history of other malignant neoplasm of bronchus and lung; Z87.891 Personal history of nicotine dependence

== ENCOUNTER → 2022-02-02 | Outpatient (CLI) | payer MEDICARE, OTHER | LOC: COL.RAD 12:06 | DX: C34.90 Malignant neoplasm of unspecified part of unspecified bronchus or lung (principal); I26.99 Other pulmonary embolism without acute cor pulmonale | CPT/HCPCS: J1644; Q9967 ==

== ENCOUNTER → 2022-08-12 | Outpatient (CLI) | payer MEDICARE, OTHER | LOC: COL.LAB 12:26 | DX: R05.9 Cough, unspecified (principal) ==

== ENCOUNTER 2023-04-07 16:26 | Inpatient (IN) | payer MEDICARE, OTHER ==
[~2023-04-07] VITALS: Ht 162.6 cm; Wt 47.0 kg
[~2023-04-07 16:26] MED LIST changes: +COMPAZINE 110 MG/TAB PO; +KEYTRUDA25 MG/ML IV; +LIPITOR 40MG TA40 MG PO; +OXYGEN; +PROTONIX 40MG T40 MG PO; +TRELEGY ELLIPT1 EAC1 IH; +TRELEGY ELLIPT1 EAC1 INH; +ZITHROMAX500 M2 PO
[2023-04-07 16:57] LABS: MEAN CELL VOLUME 102 fl (80.0-100.0); MEAN CORPUSCULAR HGB CONC 30 g/dl (33.0-37.0); MEAN PLATELET VOLUME 9.7 fl (7.4-10.4); PLATELET COUNT 377 K/mm3 (130-400); RED BLOOD COUNT 3.04 M/mm3 (4.10-5.30); REDCELL DISTRIBUTION WIDTH-CV 16.5 % (11.5-14.5)
[2023-04-07 17:00] LABS: HEMOGLOBIN 9.2 g/dl (12.5-16.0); MEAN CORPUSCULAR HEMOGLOBIN 30 pg (27-31)
[2023-04-07 17:05] LABS: INR 1.1 (0.8-3.0); PROTHROMBIN TIME 11.7 SECONDS (9.7-12.8)
[2023-04-07 17:08] LABS: PARTIAL THROMBOPLASTIN TIME 26.8 SECONDS (26.0-37.0)
[2023-04-07 17:09] LABS: ALBUMIN 2.6 gm/dL (3.4-4.8); ALKALINE PHOSPHATASE 76 U/L (40-150); ANION GAP 12 mmol/L (7-16); AST,SGOT 15 U/L (5-34); BILIRUBIN,TOTAL 0.4 mg/dL (0.2-1.2); BLOOD UREA NITROGEN 20 mg/dL (10-20); CALCIUM 8.5 mg/dL (8.4-10.2); CARBON DIOXIDE 26 mmol/L (23-31); CHLORIDE 102 mmol/L (98-107); CREATININE, serum 0.98 mg/dL (0.57-1.11); GLUCOSE 139 mg/dL (70-99); POTASSIUM 4.7 mmol/L (3.5-4.5); SODIUM 140 mmol/L (136-145); TOTAL PROTEIN 6.2 gm/dL (6.2-8.1)
[2023-04-07 17:19] LABS: D-DIMER > 5250.00 ng/mLDDu (200-230)
[2023-04-07 17:23] LABS: ALANINE AMINOTRANSFERASE < 6 U/L (0-55)
[2023-04-07 17:25] LABS: TROPONIN-I 0.091 ng/mL (0.00-0.033)
[2023-04-07 17:38] LABS: CREATINE KINASE 29 U/L (29-168)
[2023-04-07 17:48] LABS: BAND 13 % (0-10); BASOPHIL 1 % (0-2); LYMPHOCYTE 2 % (20.0-51.0); NEUTROPHILS 84 % (42.0-75.2)
[2023-04-07 17:49] LABS: HYPOCHROMIA 3+; PLATELET ESTIMATE NORMAL (NORMAL)
[2023-04-07 17:50] LABS: ANISOCYTOSIS 1+
[2023-04-07] MEDS ORDERED: B-121000 MCG PO (18:23)
[2023-04-07] MEDS ORDERED: 00186-0372-20 IH (18:23)
[2023-04-07] MEDS ORDERED: DOXYCYCLINE 10100 MG PO (18:23)
[2023-04-07] MEDS ORDERED: ENTRESTO 24 MG1 EACH PO (18:24)
[2023-04-07] MEDS ORDERED: MAG-OX 400400 MG/TAB PO (18:25)
[2023-04-07] MEDS ORDERED: VENTOLIN0.09 MG IH (18:27)
[2023-04-07] MEDS ORDERED: SENNA-LAX8.6 MG PO (18:27)
[2023-04-07] MEDS ORDERED: TRELEGY ELLIPT1 EAC1 IH (22:07)
[2023-04-07] MEDS ORDERED: SODIUM CHLORIDE4 ML IH (22:07)
[2023-04-07] MEDS ORDERED: TYLENOL 325MG325 MG PO (22:08)
[2023-04-07 22:23] VITALS: BP 87/54; PULSE 98; TEMP 98.5
--- NOTE | 2023-04-07 22:59 | NUR ---
Patient arrived to medical unit from ER at approximately 2140. Denies having pain and discomfort. Peripheral INT taken out of left forearm as requested. Port accessed to left chest, good blood return, flushed well. Reports SOB with exertion. Stood and transferred from ER bed to medical bed with SBA. On oxygen at 2 L/min via NC. LS diminsihed in right lung stephens, clear in left. HRR. BSAx4. No edema. Has non-blanchable redness with scab to bottom. Mepilex applied to area. Coleridge mattress put on bed to help with pressure reduction. Patient declines kyle catheter at this time. Started IV ABX per orders. Voices no further questions, needs, or concerns at this time. In bed with call light within reach. High fall risk precautins initiated. Bed alarm on.
[2023-04-07 23:53] VITALS: BP 86/52; PULSE 95; TEMP 98.4
[2023-04-08] VITALS (13 sets, daily range): BP systolic 49–102; BP diastolic 33–49; PULSE 85–97; TEMP 97.3–98.1
--- NOTE | 2023-04-08 04:27 | NUR ---
82 yo female with a complex medical history is now admitted for further care and management of acute on chronic respiratory failure with possible pneumonia. ht 162.6 cm wt 47 kg SCr 0.98 with estimated CrCl ~30 ml/min half life 16.4 hours Plan: Will give patient a loading dose of vancomycin 1000 mg x1 (21.3 mg/kg); followed by a maintenance regimen of vancomycin 750 mg q18h to target a goal trough of 15-20 mcg/ml. Will follow patient's renal function, micro data, and vancomycin levels as indicated to assess for any necessary changes to regimen. Thank you for this dosing consult.
--- NOTE | 2023-04-08 06:09 | NUR ---
Patient had dry heaving and given PRN Zofran, which patient reported helped. Patient is in bed with eyes closed at this time, respirations even and unlabored. Did not wake patient up for Protonix. Daughter at bedside and denies having any needs or questions at this time. Patient in bed with with call light within reach. High fall risk precautions in place. Bed alarm on. Continues on oxygen at 2 L/min via NC.
--- NOTE | 2023-04-08 07:52 | NUR ---
Recieved report this am. Upon entering room pt was alert talking with daughter at bedside. Fall risk attire and ID band on. O2 nasal cannula in place on 2L. Pt reports no pain at this time. Pt has no concerns at this time. Call light placed within reach.
--- NOTE | 2023-04-08 10:16 | NUR ---
Social Work Student was contacted by patient's primary care provider's office and informed that Dr. Gutierrez would like to talk with hospitalist in regards to patient. Social Work Student provided hospitalist with Dr. Gutierrez's contact information.
[2023-04-08 10:22] LABS: HEMATOCRIT 23.7 % (37.0-47.0); HEMOGLOBIN 7.4 g/dl (12.5-16.0); MEAN CELL VOLUME 98 fl (80.0-100.0); MEAN CORPUSCULAR HEMOGLOBIN 30 pg (27-31); MEAN CORPUSCULAR HGB CONC 31 g/dl (33.0-37.0); MEAN PLATELET VOLUME 10.1 fl (7.4-10.4); RED BLOOD COUNT 2.43 M/mm3 (4.10-5.30); REDCELL DISTRIBUTION WIDTH-CV 16.7 % (11.5-14.5)
[2023-04-08 10:24] LABS: PLATELET COUNT 231 K/mm3 (130-400)
[2023-04-08 10:42] LABS: CALCIUM 7.8 mg/dL (8.4-10.2); CREATININE, serum 0.97 mg/dL (0.57-1.11); POTASSIUM 4.2 mmol/L (3.5-4.5)
--- NOTE | 2023-04-08 10:48 | NUR ---
PATIENT REQUESTED LIDOCAIN PATCH. PATCH PLACED ON LOWER BACK FOR PATIENT PAIN CONTROL. PATIENT HAD REFUSED PATCH PRIOR IN SHIFT WHEN COMMERCIAL LINES ACCOUNT MANAGER AND INSTRUCTOR TRIED TO ADMINISTER. PATIENT DENIES ANY OTHER NEEDS AT THIS TIME. FAMILY AT BEDSIDE. BED IN LOW POSITION WITH WHEELS LOCKED WITH RAILS UP X2 AND CALL LIGHT WITHIN REACH.
--- NOTE | 2023-04-08 10:51 | NUR ---
Initial visit (this stay); Maribell tearfully asked Catalyst Plant Supervisor to pray with her and said that when she gets to [facility] she will ask God to take care of Catalyst Plant Supervisor and while her health has been failing she has had a 'hug' from God. Knowing Maribell, I believe it. She is dear to Catalyst Plant Supervisor's heart.
[2023-04-08 10:56] LABS: TROPONIN-I 1.398 ng/mL (0.00-0.033)
--- NOTE | 2023-04-08 11:06 | NUR ---
DR. GUERRERO NOTIFIED OF HIGH CRITICAL TROPONIN OF 1.398. NO NEW ORDERS RECIEVED AT THIS TIME.
--- NOTE | 2023-04-08 13:14 | NUR ---
Palliative care meeting with pt, radha Serra/anthony Demarco, myself, KEIRA Blanco and SW student Tish. Case reviewed per Dr. Parrish/Dr. Doshi during rounding. Pt is currently DNR. Pt was admitted for Acute on Chronic Hypoxic Respiratory Failure. Hx Recent dx Gastric Carcinoma with Radiation tx, COPD. Both Dr. Doshi/LAURA agreed pt needs to be Palliative and that they have nothing more to offer the pt. Pt had recent admit 03/02. CT showing PE LLL, Large Right Pleural Effusion, Right mainstem Bronchial Stent Occlusion. Discussed with pt that there is concern that her time may be short and types of options for end of life. Pt stated she agreed with Hospice at Home. Samina reviewed options for this care. Answered questions from Dav/Maryse concerning roles they would have with Hospice in taking care of pt. Family will decide which Hospice care they would like. Answered all of their questions and they voiced understanding. Pt stated, "I want to do this at home and I am ready to go be with God."
[2023-04-08 13:36] LABS: PLEURAL FLUID RBC 0 /mm3 (0-0); PLEURAL FLUID WBC 176 /mm3
[2023-04-08 13:40] LABS: PLEURAL FLUID APPEARANCE CLEAR; PLEURAL FLUID COLOR YELLOW
--- NOTE | 2023-04-08 16:05 | NUR ---
Farm Contractor Buyer met with patient and her daughter, Marisol (ph#[phone]) at bedside following rounds. Patient lives alone in [place] but reported she has a lot of family support. Patient sees Dr. Gutierrez at [facility] for primary care and she obtains medications from [facility]. Patient has home oxygen through [facility] and also has a front wheeled walker and rollator at home. Patient stated she has been independent with dressing and toileting, but needs help bathing. Patient stated she wants to return home at time of discharge. Marisol advised she plans to stay with patient at discharge to provide assistance and supervision. Palliative consult was ordered for patient. KEIRA and Cecelia OROSCO met with patient to discuss goals of care. After discussion of current status, patient decided she wants to return home with hospice services. KEIRA provided Medicare.gov list of hospice agencies for review. Patient's grandson, Osorio who is also DPOA-HC was in attendance for this meeting along with his , Sariah. Family is aware that they will primarily be responsible for patient's care at home and are agreeable to this. Osorio met with KEIRA at [facility] to discuss hospice options. KEIRA studentTish followed up with Osorio who advised the decided on [facility]. KEIRA contacted Kevin at [facility] and sent a referral. Kevin followed up with KEIRA and advised he spoke with patient's grandson, Osorio and they are just waiting to hear from Dr. Gutierrez if she is willing to follow. Kevin advised they are hoping to admit patient at home tomorrow. Discharge Plan: Home with [facility], hopefully tomorrow
--- NOTE | 2023-04-08 18:59 | NUR ---
PATIENT RESTED AT INTERVALS. PATIENT TOLERATED THORASENTSIS WIHT 950 ML OF FLUID DRAINGED. LEFT UPPER CHEST PORT INTACT, CLEAN, AND DRY WITH NO COMPLICATIONS NOTED. FAMILY VISITED AT INTERVALS. TELEMETRY SR. PATIENT PAIN CONTROLLED WITH LIDOCAINE AND TYLENOL. PATIENT CONTINUES TO USE 2 LITERS OF OXYGEN VIA NC WHICH IS HOME DOSE. PATIENT DIMINSTRATED INCREASED EASY OF BREATHING AFTER THOARASENTSIS. ALL NEEDS MET. BED IN LOW POSITION WITH WHEELS LOCKED WITH RAILS UP X3 AND CALL LIGHT WITHIN REACH.
--- NOTE | 2023-04-08 23:21 | NUR ---
Patient assessed around 2014. Alert and oriented, and able to make needs known. Complained of pain to back, and requested stronger pain medication. Call placed to [facility], and new order received to restart Morphine. Given per orders, which patient reports has helped. On oxygen at 2 L/min via NC. 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 Patient seems to be in good spirits, enjoyed talking about her beliefs, GOD, and Godwin. Very thankful towards staff for cares and assistance. Voices no questions, needs, or concerns at this time. In bed with call light within reach. High fall risk precautions in place. Bed alarm on.
[2023-04-09] VITALS (8 sets, daily range): BP systolic 91–110; BP diastolic 46–84; PULSE 96–121; TEMP 97–98.3
--- NOTE | 2023-04-09 06:00 | NUR ---
Patient reports Morphine worked well for pain last night, only needed one dose. Continues on IV ABX per orders. Denies pain and discomfort this morning. Used bedside commode during the night. Did have nausea/dry heaving this morning. Given Zofran per orders. In bed with call light within reach. High fall risk precautions. Bed alarm on.
--- NOTE | 2023-04-09 07:03 | NUR ---
PATIENT RESTING IN BED WITH EYES CLOSED AT THIS TIME WITH NO ACUTE DISTRESS NOTED. PATIENT ON 2 LITERS OF OXYGEN VIA NC. PATIENT EASILY AROUSED. ASSESSMENT COMPLETED. PATIENT TOLERATED WELL. PATIENT DENIES ANY PAIN THAT THIS TIME. PATIENT STATED "WHATEVER THEY GAVE ME LAST NIGHT COMPLETELY TOOK AWAY MY PAIN." PATIENT DENIES ANY NEEDS AT THIS TIME. BED IN LOW POSITION WITH WHEELS LOCKED WITH RAILS UP X3 AND CALL LIGHT WITHIN REACH. BED ALARM ON.
--- NOTE | 2023-04-09 08:50 | NUR ---
PATIENT RESTING IN BED EATING BREAKFAST AT THIS TIME WITH NO ACUTE DISTRESS NOTED. PATIENT ON 2 LITERS OF OXYGEN VIA NC. PATIENT AT 10% OF BREAKFAST TRAY. ENSURE INLIVE GIVEN PER PATIETN REQUEST AND PATIENT DRANK ALL OF IT. MEDICATION ADMINISTRATION COMPLETED AT THIS TIME. PATIENT TOLERATED WELL. PATIENT DENIES ANY OTHER NEEDS. BED IN LOW POSITION WITH WHEELS LOCKED WITH RAILS UP X3 AND CALL LIGHT WITHIN REACH. BED ALARM ON.
--- NOTE | 2023-04-09 13:26 | NUR ---
Had visit with Dr. Doshi, pt and myself. Dr. Doshi reviewed case with pt and Hospice care was discussed. Dr. Doshi also discussed placement of Pleurx with pt. At this point pt will be discharged to Hospice and not have a Pleurx placed. Dr. Doshi answered all of pt's questions and she voiced understanding.
[2023-04-09] MEDS ORDERED: CEFTIN500 MG PO (15:01)
--- NOTE | 2023-04-09 16:27 | NUR ---
Business Project Analyst spoke with Hospitalist who advised patient is ready for discharge today. Kevin at [facility] advised there was some question about a possible drain placement. RN-TIMOTHY spoke with Dr. Doshi and that is not recommended at this time. Kevin updated Dr. Gutierrez's office and they are agreeable to follow. Kevin advised they can admit patient Wednesday morning at 1000. KEIRA met with patient and her grandson, Osorio to provide update. Patient and family do not want to wait until Wednesday to discharge and request discharge today. Osorio expressed family is comfortable providing care and they understand patient would not be covered under hospice until Wednesday. Osorio will provide patient transportation home. KEIRA spoke with Hospitalist who also collaborated with Dr. Gutierrez. They are agreeable to discharge home today. KEIRA faxed discharge orders to Kevin at [facility] and provided update. Discharge Plan: Home, start hospice Wednesday
--- NOTE | 2023-04-09 17:55 | NUR ---
PATIENT RESTING IN BED WITH TV OFF AT THIS TIME. DISCHARGE INSTRUCTIONS GIVEN. PATIENT VERBALIZED UNDERSTANDING. LEFT UPPER CHEST PORT DEACCESSED AND HEPARINIZED. PATIENT TOLERATED WELL. PATIENT ASSESTED TO GET DRESSED AND TAKEN TO SON'S CAR VIA WHEELCHAIR. PATIENT CONDITION STABLE.
--- NOTE | 2023-04-13 09:21 | NUR ---
Engineering Geologist was contacted by Kevin at [facility] who advised patient and family declined hospice services when the director of social media marketing came to visit yesterday. Patient's family was interested in general home care, which Kevin advised they could get established.
== END 2023-04-09 18:05 | disposition hospice, home (50) | DRG 175 ==
LOC: COL.ER 16:26 → MEDICAL 19:43
PROVIDERS: Emergency Medicine; ADMIT Internal Medicine
PROC: 0W993ZZ Drainage of Right Pleural Cavity, Percutaneous Approach (ICD-10-PCS; principal; 2023-04-07)
DX: I26.99 Other pulmonary embolism without acute cor pulmonale (principal); J96.21 Acute and chronic respiratory failure with hypoxia; C34.90 Malignant neoplasm of unspecified part of unspecified bronchus or lung; I50.42 Chronic combined systolic (congestive) and diastolic (congestive) heart failure; I42.9 Cardiomyopathy, unspecified; J90 Pleural effusion, not elsewhere classified; J44.9 Chronic obstructive pulmonary disease, unspecified; I95.9 Hypotension, unspecified; I11.0 Hypertensive heart disease with heart failure; E78.5 Hyperlipidemia, unspecified; I35.0 Nonrheumatic aortic (valve) stenosis; I25.10 Atherosclerotic heart disease of native coronary artery without angina pectoris; I48.91 Unspecified atrial fibrillation; Z66 Do not resuscitate; Z86.718 Personal history of other venous thrombosis and embolism
CPT/HCPCS: J0692; J1644; J2270; J2405; J3370; J7030; J7050; Q9967

== ENCOUNTER → 2023-06-07 | Outpatient (CLI) | payer MEDICARE, OTHER ==
[~2023-06-07] MED LIST changes: +ATIVAN 1MG T1 MG/TAB PO; +B-121000 MCG PO; +DOXYCYCLINE 10100 MG PO; +MAG-OX 400400 MG/TAB PO; +SENNA-LAX8.6 MG PO; +SODIUM CHLORIDE4 ML IH; +VITAMIN A10k; +VITAMIN C500 MG; +VITAMIN D31000 I1
== END ==
LOC: COL.RAD 07:35
DX: C34.91 Malignant neoplasm of unspecified part of right bronchus or lung (principal); J90 Pleural effusion, not elsewhere classified; J98.09 Other diseases of bronchus, not elsewhere classified
CPT/HCPCS: J1644; Q9967

== ENCOUNTER 2023-06-09 15:41 | Inpatient (IN) | payer MEDICARE, OTHER ==
[2023-06-09] VITALS (12 sets, daily range): BP systolic 126–174; BP diastolic 47–86; PULSE 79–93; TEMP 98.1–99.8
[~2023-06-09] VITALS: Ht 162.6 cm; Wt 45.5 kg
[~2023-06-09 15:41] MED LIST changes: -ATIVAN 1MG T1 MG/TAB PO; -VITAMIN A10k; -VITAMIN C500 MG; -VITAMIN D31000 I1
[2023-06-09 16:46] LABS: BASO % 0.5 % (0.0-2.0); EOS % 0.5 % (0.0-4.0); GRAN # 4.9 K/mm3 (1.4-6.5); GRAN % 79.4 % (42.2-75.2); LYMPH # 0.5 K/mm3 (1.2-3.4); LYMPH % 7.4 % (20.0-51.0); MEAN CELL VOLUME 103 fl (80.0-100.0); MEAN CORPUSCULAR HGB CONC 29 g/dl (33.0-37.0); MEAN PLATELET VOLUME 9.6 fl (7.4-10.4); MONO # 0.7 K/mm3 (0.1-0.6); MONO % 11.6 % (1.7-9.3); PLATELET COUNT 237 K/mm3 (130-400); RED BLOOD COUNT 1.57 M/mm3 (4.10-5.30); REDCELL DISTRIBUTION WIDTH-CV 17.5 % (11.5-14.5)
[2023-06-09 16:48] LABS: COLLECTION METHOD CATHETER
[2023-06-09 16:49] LABS: HEMATOCRIT 16.2 % (37.0-47.0); HEMOGLOBIN 4.7 g/dl (12.5-16.0); MEAN CORPUSCULAR HEMOGLOBIN 30 pg (27-31)
[2023-06-09 16:56] LABS: PH 5.5 (5.0-8.5); URINE APPEARANCE Clear (CLEAR/HAZY); URINE BLOOD Negative (NEGATIVE); URINE COLOR Yellow (YELLOW); URINE GLUCOSE Negative (NEGATIVE); URINE KETONE Negative (NEGATIVE); URINE NITRATE Negative (NEGATIVE); URINE PROTEIN(semi-quant) TRACE (NEGATIVE); URINE UROBILINOGEN 0.2 E.U/dL (0.2-1.0)
[2023-06-09 17:03] LABS: ALANINE AMINOTRANSFERASE 10 U/L (0-55); ALBUMIN 2.4 gm/dL (3.4-4.8); ALKALINE PHOSPHATASE 67 U/L (40-150); ANION GAP 11 mmol/L (7-16); AST,SGOT 16 U/L (5-34); BILIRUBIN,TOTAL < 0.5 mg/dL (0.2-1.2); BLOOD UREA NITROGEN 31 mg/dL (10-20); CALCIUM 8.7 mg/dL (8.4-10.2); CARBON DIOXIDE 23 mmol/L (23-31); CHLORIDE 106 mmol/L (98-107); CREATININE, serum 0.92 mg/dL (0.57-1.11); GLUCOSE 104 mg/dL (70-99); POTASSIUM 4.4 mmol/L (3.5-4.5); SODIUM 140 mmol/L (136-145); TOTAL PROTEIN 5.5 gm/dL (6.2-8.1)
[2023-06-09 17:25] LABS: SQUAMOUS EPITHELIAL 0-2 /hpf (0-10); URINE BACTERIA Rare /hpf (NONE SEEN); URINE RBC None Seen /hpf (0-2)
[2023-06-09] MEDS ORDERED: Ondansetron 4 MG/2 ML VIAL IV PRN (18:45)
--- NOTE | 2023-06-09 19:35 | NUR ---
Patient arrived to room 308 via stretcher from ED. Blood is infusing at this time. Vital signs are not up to date from transfer rom ED. Notified BETY FITZGERALD to update vitals in system so we can continue transfusion vitals. Verbalized understanding. Report given to AMILCAR Valentine.
[2023-06-09] MEDS ORDERED: VITAMIN A10k (19:57)
[2023-06-09] MEDS ORDERED: VITAMIN C500 MG (19:57)
[2023-06-09] MEDS ORDERED: VITAMIN D31000 I1 (19:58)
[2023-06-09] MEDS ORDERED: ATIVAN 1MG T1 MG/TAB PO (20:07)
[2023-06-09] MEDS ORDERED: Albuterol/Ipratropium 3 MG-0.5 MG/3 ML Neb Soln IH PRN (20:45)
[2023-06-09] MEDS ORDERED: hydrALAZINE 20 MG/ML 1 ML VIAL IV PRN (21:00)
[2023-06-09] MEDS ORDERED: Pantoprazole 40 MG in NS 10 ML IV SCH (21:13)
[2023-06-09] MEDS ORDERED: NS 1,000 ML IV SCH (21:45)
--- NOTE | 2023-06-09 23:58 | NUR ---
patient arrived on unit from ED at 2034, alert and oriented x4. Claudine, RN and Kasey RN in to meet and start admission process with pt. Hgb at 4.7, pt receiving 1 unit of PRBC at this time running at 125 ml/hr with no reactions, vitals within normal range. small scab and redness of right lower back, slight redness to coccyx region noted. left chest portacath is patent and site is clean dry and intact. 2104, DONALDO Thurman notified for request to place an additional order for a second unit of PRBC per CHANDANA Leone's request. 1 unit of PRBC received and transfusion started at 0, vitals stable, in with pt for first 15 minutes of transfusion with blood running at 60 ml/hr. rate adjusted to 90 ml/hr. pt denies, chills or shortness of breath. pt has no further needs, questions or concerns. fall precautions in place, call light within reach. will continue to monitor.
[2023-06-10] VITALS (32 sets, daily range): BP systolic 126–188; BP diastolic 46–90; PULSE 77–103; TEMP 98.1–99.2
[2023-06-10 04:16] LABS: BASO # 0.1 K/mm3 (0.0-0.2); EOS % 0.6 % (0.0-4.0); GRAN # 3.9 K/mm3 (1.4-6.5); GRAN % 74.9 % (42.2-75.2); LYMPH # 0.5 K/mm3 (1.2-3.4); LYMPH % 9.5 % (20.0-51.0); MEAN CORPUSCULAR HGB CONC 33 g/dl (33.0-37.0); MEAN PLATELET VOLUME 9.9 fl (7.4-10.4); MONO # 0.7 K/mm3 (0.1-0.6); MONO % 13.4 % (1.7-9.3); PLATELET COUNT 207 K/mm3 (130-400); RED BLOOD COUNT 2.85 M/mm3 (4.10-5.30)
[2023-06-10 04:17] LABS: HEMATOCRIT 26.1 % (37.0-47.0); HEMOGLOBIN 8.5 g/dl (12.5-16.0); MEAN CELL VOLUME 92 fl (80.0-100.0); MEAN CORPUSCULAR HEMOGLOBIN 30 pg (27-31)
[2023-06-10 04:23] LABS: INR 1.1 (0.8-3.0); PROTHROMBIN TIME 11.7 SECONDS (9.7-12.8)
[2023-06-10 04:33] LABS: CALCIUM 9.2 mg/dL (8.4-10.2); CREATININE, serum 0.83 mg/dL (0.57-1.11); MAGNESIUM 1.9 mg/dL (1.6-2.6); PHOSPHOROUS 3.6 mg/dL (2.3-4.7)
--- NOTE | 2023-06-10 06:59 | NUR ---
DR. Ravi request orders for EGD be placed and scheduled for 1430 on 06/10/23, via phone order read back, order set placed. passed on to day shift nurse to verify scheduled EGD at 1430.
[2023-06-10] MEDS ORDERED: Ondansetron 4 MG/2 ML VIAL IV PRN (07:00)
--- NOTE | 2023-06-10 09:12 | NUR ---
PT LAYING IN BED UPON ENTERING. ASSESSMENT DONE, MEDS GIVEN PER ORDER. FLUIDS RUNNING PER ORDER IN LEFT CHEST PORT, GOOD BLOOD RETURN FROM PORT. PT DENIES PAIN OR SHORTNESS OF BREATH AT THIS TIME. PT DOES COMPLAIN OF INCREASED WEAKNESS. BASELINE UPPER EXTREMITY TREMORS NOTED. BEDSIDE COMMODE USED AND PT AMBULATED TO CHAIR ONE ASSIST, GAIT STEADY. ERYTHEMA NOTED TO COCCYX, SKIN INTACT. PT ON 2L NASAL CANNULA. UPPER LOBES CLEAR AND BASES BILATERALLY DIMINISHED. PT UPDATED ON NPO STATUS AND PLANNED EGD FOR THE DAY, PT VERBALIZED UNDERSTANNDING. PT DENIES NEEDS AT THIS TIME. CALL LIGHT IN REACH, CHAIR ALARM ON
[2023-06-10] MEDS ORDERED: LIPITOR 40MG TA40 MG PO (09:41)
--- NOTE | 2023-06-10 10:13 | NUR ---
PTS GRANDSON MARCELINO CALLED AND UPDATED PER PT REQUEST. ALL QUESTIONS ANSWERED AND FAMILY MEMBER VERBALIZED UNDERSTANDING.
--- NOTE | 2023-06-10 12:20 | NUR ---
PTS BP 184/77, PRN HYDRALAZINE GIVEN PER ORDER
--- NOTE | 2023-06-10 12:53 | NUR ---
NS NOT SHOWING UP IN [facility]. [place], PHARMACY CALLED AND TOLD THIS NURSE THAT HE WOULD RETIME MED
[2023-06-10] MEDS ORDERED: NS 1,000 ML IV SCH (13:00)
--- NOTE | 2023-06-10 13:17 | NUR ---
KEIRA Student identified self as KEIRA Student and completed intake with patient at bedside. Patient lives in [place], [place] alone. She stated that she has many family members that will come and help when needed. Patient sees Dr. Rosalee Gutierrez for primary care and prefers to use [facility]'s pharmacy. Patient stated that she was sent over from Dr. Blackwell's office due to low hemoglobin. Patient currently receives palliative care from [facility]. Patient's DPOA-HC is her grandson Osorio Raygoza (ph#[phone]). Patient stated that a second point of contact would be her daughter Lucy Palumbo (ph#[phone]). Patient stated that she is fairly independent with ADLs but does need assistance with shampooing her hair and showering. Patient stated that she utilizes a walker within the home and a wheelchair for longer distances. Patient uses 2-3 liters of oxygen depending on the activities she is doing. Patient stated that she receives oxygen from [facility]. Patient stated that her family helps with transportation when needed. Patient is covered by Medicare for insurance. Patient stated that she plans to return home with palliative care at time of discharge. Discharge Plan: Home with continued palliative care
--- NOTE | 2023-06-10 13:40 | NUR ---
PT IN ENDO
[2023-06-10] MEDS ORDERED: LR 1,000 ML IV SCH (13:45)
[2023-06-10] MEDS ORDERED: Lidocaine PF 2% (20 MG/ML) 5 ML VIAL ONE (14:12)
[2023-06-10] MEDS ORDERED: Glycopyrrolate 0.2 MG/ML 1 ML VIAL ONE (14:25)
--- NOTE | 2023-06-10 14:45 | NUR ---
PT BACK FROM ENDO AND PLACED ON POST OP VITALS. PT DENIES NEEDS AT THIS TIME
--- NOTE | 2023-06-10 17:51 | NUR ---
PT REPORTS HEADACHE. DR HOOKER CALLED AND GAVE THIS NURSE A VERBAL ORDER FOR "TYLENOL 650 EVERY 4 HOURS". THIS NURSE ASKED IF MEDICATION WILL BE PRN AND HOSPITALIST TOLD THIS NURSE YES.
[2023-06-10] MEDS ORDERED: Acetaminophen 325 MG TAB PO PRN (18:00)
--- NOTE | 2023-06-10 18:34 | NUR ---
PT LAYING IN BED UPON ENTERING. PT DENIES NEEDS AT THIS TIME, GRANDSON AT BEDSIDE. PT AND FAMILY UPDATED AND PROCEDURE AND ALL QUESTIONS ANSWERED. BED IN LOWEST POSITION, CALL LIGHT IN REACH, BED ALARM ON
--- NOTE | 2023-06-10 19:21 | NUR ---
REPORT GIVEN TO AMILCAR JAIMES
[2023-06-11] VITALS (9 sets, daily range): BP systolic 137–191; BP diastolic 61–69; PULSE 64–120; TEMP 97.9–98.4
--- NOTE | 2023-06-11 01:07 | NUR ---
patient lying in bed alert and oriented x4. pt denies pain and shortness of breath. IV portacath in left chest is patent, site is clean dry and intact with NS running at 100 ml/hr. small scab with slight redness on right lower back, slight redness to coccyx region, generalized scattered bruising on extremities. pt has no further needs, questions, or concerns at this time. fall precautions in place, call light within reach. will continue to monitor.
[2023-06-11 06:41] LABS: BASO % 0.5 % (0.0-2.0); EOS # 0.1 K/mm3 (0.0-0.7); EOS % 1.5 % (0.0-4.0); GRAN # 4.9 K/mm3 (1.4-6.5); LYMPH # 0.4 K/mm3 (1.2-3.4); LYMPH % 6.2 % (20.0-51.0); MEAN CELL VOLUME 93 fl (80.0-100.0); MEAN CORPUSCULAR HGB CONC 32 g/dl (33.0-37.0); MEAN PLATELET VOLUME 9.6 fl (7.4-10.4); MONO # 0.7 K/mm3 (0.1-0.6); MONO % 11.3 % (1.7-9.3); PLATELET COUNT 225 K/mm3 (130-400); RED BLOOD COUNT 3.23 M/mm3 (4.10-5.30); REDCELL DISTRIBUTION WIDTH-CV 17.5 % (11.5-14.5)
[2023-06-11 06:47] LABS: HEMOGLOBIN 9.5 g/dl (12.5-16.0); MEAN CORPUSCULAR HEMOGLOBIN 29 pg (27-31)
[2023-06-11 06:56] LABS: CALCIUM 8.7 mg/dL (8.4-10.2); CREATININE, serum 0.74 mg/dL (0.57-1.11); POTASSIUM 3.9 mmol/L (3.5-4.5)
--- NOTE | 2023-06-11 08:13 | NUR ---
Patient resting in bed looking at breakfast menu. No complaints of pain. Patient was unhappy that she was not able to order hager with her breakfast per [facility] diet. Educated on importance of ordering nutrient dense foods. NS running at 100ML/HR. Call bryan within reach, side rails up x2.
--- NOTE | 2023-06-11 08:30 | NUR ---
PATIENT SITTING UP IN BED UPON ENTERING ROOM. SHIFT ASSESSMENT COMPLETED. PATIENT CURRENTLY ON 2L O2 VIA NC. IVF INFUSING. PATIENT IS HOPING TO DISCHARGE TODAY. SHE STATES SHE HAS NOT HAD A BOWEL MOVEMENT TODAY. DENIES ANY PAIN OR NEEDS AT THIS TIME. CALL LIGHT WITHIN REACH, BED ALARMS IN PLACE. WILL CONTINUE TO MONITOR.
--- NOTE | 2023-06-11 09:37 | NUR ---
Patient expressed spiritual distress, Final Inspector Paper Shaniqua was called and requested to visit. The patient seemed relieved to be getting visited.
--- NOTE | 2023-06-11 10:13 | NUR ---
Initial visit; Patient requested Shaniqua visit. Patient and her Grandson wanted to know about Palliative Care vs. Hospice. Visitor Information Assistant mentioned positive points of Palliative Care and that Hospice Care focuses upon keeping a patient comfortable. wanted to place the focus upon the 'Care Management Teams''upcoming visit with Maribell. visited with the dear and offered the Numbers 6:24 [place] for her. Maribell thanked .
--- NOTE | 2023-06-11 10:28 | NUR ---
Met with pt- Omero, anthony- Samina Ac and myself. Pt is currently DNR. During rounding Dr. Guzman reviewed pt's status and possible discharge with Hospice. When anthony arrived it was discussed Palliative care vs Hospice. "I don't want to go home with Hospice. I have been making it using Palliative with my family. They take good care of me." Anthony stated- "She has greatly improved since March, more communicative, stronger. We want her to continue with palliative due to this rally." Pt admitted for Anemia with HGB 4.7. EGD- unable to visualize due to friability of ulcers- concern for perforation per Dr. Guzman. Omero stated- "I am ready to go and see Godwin, [facility] the [facility]. My grandson doesn't want me to leave." Anthony stated- "She doesn't live like that- she continues to live and have hope." Pt will continue with Palliative Care on discharge. KEIRA Haas will be assisting with discharge plans.
--- NOTE | 2023-06-11 11:09 | NUR ---
It was discussed with pt anthony Jamil concerning transfer to for EGD. At this time pt stated she did not want to be transferred and desired to be discharged to home with Palliative Care.
--- NOTE | 2023-06-11 15:49 | NUR ---
Incinerator Plant Supervisor attended clinical rounds with the team and Hospitalist ordered a palliative consult to discuss hospice. KEIRA and ANA LUISA met with patient and her grandson, Cal. Patient stated she is anxious to meet Godwin and understands her prognosis. Cal advised that they are realistic about patient's condition, but that she also has had an improvement in the last couple months. Cal advised things have been going well with palliative care at home. Patient stated this is what she would like to continue doing. KEIRA updated Olman at [facility] and sent discharge orders. Patient is eager to return home today. Discharge Plan: Home with continued Palliative care
--- NOTE | 2023-06-11 16:35 | NUR ---
PORT DEACCESSED, TELEMETRY REMOVED. DISCHARGE INSTRUCTIONS REVIEWED, DAUGHTER AT BEDSIDE, ALL QUESTIONS ANSWERED. PATIENT ESCORTED OFF OF UNIT BY VIA [facility]. .
== END 2023-06-11 16:36 | disposition home or self-care (01) | DRG 380 ==
LOC: COL.ER 15:41 → MEDICAL 17:50
PROVIDERS: Internal Medicine Gastroenterology; Nurse Practitioner; Nurse Practitioner Family; ADMIT Internal Medicine
PROC: 30233N1 Transfusion of Nonautologous Red Blood Cells into Peripheral Vein, Percutaneous Approach (ICD-10-PCS; 2023-06-09)
PROC: 0DJ08ZZ Inspection of Upper Intestinal Tract, Via Natural or Artificial Opening Endoscopic (ICD-10-PCS; principal; 2023-06-10 14:00)
DX: K22.11 Ulcer of esophagus with bleeding (principal); E43 Unspecified severe protein-calorie malnutrition; D62 Acute posthemorrhagic anemia; I42.9 Cardiomyopathy, unspecified; J96.11 Chronic respiratory failure with hypoxia; I50.42 Chronic combined systolic (congestive) and diastolic (congestive) heart failure; I13.0 Hypertensive heart and chronic kidney disease with heart failure and stage 1 through stage 4 chronic kidney disease, or unspecified chronic kidney disease; Z68.1 Body mass index [BMI] 19.9 or less, adult; C15.9 Malignant neoplasm of esophagus, unspecified; Z66 Do not resuscitate; Z51.5 Encounter for palliative care; I48.91 Unspecified atrial fibrillation; J44.9 Chronic obstructive pulmonary disease, unspecified; E78.5 Hyperlipidemia, unspecified; K22.2 Esophageal obstruction; I35.0 Nonrheumatic aortic (valve) stenosis; N18.9 Chronic kidney disease, unspecified; F41.9 Anxiety disorder, unspecified; I25.10 Atherosclerotic heart disease of native coronary artery without angina pectoris; Z85.118 Personal history of other malignant neoplasm of bronchus and lung; Z90.710 Acquired absence of both cervix and uterus; Z88.0 Allergy status to penicillin; Z91.048 Other nonmedicinal substance allergy status; Z95.4 Presence of other heart-valve replacement; Z86.718 Personal history of other venous thrombosis and embolism; Z86.711 Personal history of pulmonary embolism; Z86.73 Personal history of transient ischemic attack (TIA), and cerebral infarction without residual deficits; Z87.19 Personal history of other diseases of the digestive system; Z99.81 Dependence on supplemental oxygen; Z87.891 Personal history of nicotine dependence; Z92.21 Personal history of antineoplastic chemotherapy; Z92.3 Personal history of irradiation; Z23 Encounter for immunization
CPT/HCPCS: C9113; G0378; J0360; J2704; J7030; P9016